=== PATIENT | female | born 1935 | race Caucasian/White ===

== ENCOUNTER 2017-05-17 14:36 | Outpatient (CLI) | payer MEDICARE, OTHER ==
--- NOTE | 2017-05-17 16:47 | XRAY Report ---
LEFT HIP AND PELVIS: CLINICAL INDICATION: Pain. Frontal view of the hips and pelvis, and frog-leg lateral view of the left hip demonstrate mild left hip osteoarthritis. Previous right hip replacement is noted, with cerclage wires in place. Vascular calcifications are present. IMPRESSION: MILD LEFT HIP OSTEOARTHRITIS. JOB #: [id number] EXT JOB #:[id number]
== END 2017-05-17 14:37 | disposition home or self-care (01) ==
LOC: DI.S 14:36
PROVIDERS: ATTEND Nurse Practitioner Family
DX: M25.552 Pain in left hip (principal); M16.12 Unilateral primary osteoarthritis, left hip; Z91.81 History of falling

== ENCOUNTER 2017-08-16 11:05 | Outpatient (CLI) | payer MEDICARE, OTHER ==
[2017-08-16 18:07] LABS: BASOPHILS # (AUTO) 0.1 10^3/uL (0.0-0.1); BASOPHILS % (AUTO) 1.4 %; EOSINOPHILS # (AUTO) 0.5 10^3/uL (0.0-0.7); EOSINOPHILS % (AUTO) 6.2 %; HCT - HEMATOCRIT 43.2 % (37.0-47.0); HGB - HEMOGLOBIN 13.9 g/dL (12.0-16.0); LYMPHOCYTES # (AUTO) 2.2 10^3/uL (1.5-3.5); LYMPHOCYTES % (AUTO) 27.3 %; MEAN CORPUSCULAR HEMOGLOBIN 32.3 pg (27.0-31.0); MEAN CORPUSCULAR HGB CONC 32.1 g/dL (32.0-36.0); MEAN CORPUSCULAR VOLUME 100.6 fL (81.0-99.0); MEAN PLATELET VOLUME 10.2 fL (7.9-10.8); MONOCYTES # (AUTO) 1.1 10^3/uL (0.0-1.0); MONOCYTES % (AUTO) 14.1 %; NEUTROPHILS # (AUTO) 4.1 10^3/uL (1.5-6.6); NUCLEATED RED BLOOD CELLS AUTO 0.1 /100WBC; RED BLOOD COUNT 4.29 10^6/uL (4.20-5.40); RED CELL DISTRIBUTION WIDTH 18.3 % (12.0-15.0); UNCORRECTED WHITE BLOOD COUNT 8.1 x10^3/uL; WHITE BLOOD COUNT 8.1 x10^3/uL (4.8-10.8)
[2017-08-16 18:42] LABS: PLATELET ESTIMATE, MANUAL NORMAL (130-450,000) (NORMAL); PLATELET MORPHOLOGY NORMAL APPEARANCE (NORMAL)
[2017-08-16 18:44] LABS: THYROID STIMULATING HORMONE < 0.08 uIU/mL (0.34-5.60)
[2017-08-16 19:15] LABS: ALBUMIN/GLOBULIN RATIO 1.3 (1.0-2.2); BILIRUBIN,TOTAL 0.7 mg/dL (0.2-1.0); BUN - BLOOD UREA NITROGEN 19 mg/dL (6-20); CALCIUM 9.5 mg/dL (8.5-10.3); CARBON DIOXIDE - CO2 27 mmol/L (21-32); CHLORIDE 109 mmol/L (101-111); CHOL/HDL RATIO 2.8 (<4.4); CHOLESTEROL 194 mg/dL; CREATININE 0.8 mg/dL (0.4-1.0); GFR - MDRD 69 (>89); GLUCOSE 71 mg/dL (70-100); HDL CHOLESTEROL 69 mg/dL; LDL/HDL RATIO 1.6 (<4.4); POTASSIUM 3.9 mmol/L (3.5-5.0); SODIUM 142 mmol/L (135-145); TOTAL PROTEIN 6.3 g/dL (6.7-8.2); TRIGLYCERIDES 91 mg/dL; VLDL CHOLESTEROL 18 mg/dL
== END 2017-08-16 11:06 | disposition home or self-care (01) ==
LOC: LAB.F 11:05
PROVIDERS: ATTEND Family Medicine
DX: E03.9 Hypothyroidism, unspecified (principal); D64.9 Anemia, unspecified; E55.9 Vitamin D deficiency, unspecified; E21.3 Hyperparathyroidism, unspecified; I73.00 Raynaud's syndrome without gangrene; G62.9 Polyneuropathy, unspecified
CPT/HCPCS: 36415; 80053; 80061; 82306; 83036; 84439; 84443; 85025

== ENCOUNTER 2017-09-07 15:01 | Outpatient (CLI) | payer MEDICARE, OTHER ==
--- NOTE | 2017-09-08 13:17 | XRAY Report ---
DATE OF SERVICE: 09/07/2017 EXAM: TWO VIEW LEFT HAND: 09/07/2017 CLINICAL INDICATION: Chronic pain. FINDINGS: Frontal and lateral views of the left hand demonstrate extensive arthritic changes in the interphalangeal joints, metacarpophalangeal joints, and carpometacarpal joints, with periarticular ca lcifications, suggestive of gouty arthritis. There is no evidence of acute fracture. No radiopaque foreign body i s seen in the soft tissues. IMPRESSION: EXTENSIVE ARTHRITIC CHANGES. NO EVIDENCE OF FRACTURE. TD: 09/08/2017 10:50
== END 2017-09-07 15:02 | disposition home or self-care (01) ==
LOC: DI.S 15:01
PROVIDERS: ATTEND Family Medicine
DX: M19.041 Primary osteoarthritis, right hand (principal)

== ENCOUNTER 2017-09-26 14:35 | Outpatient (CLI) | payer MEDICARE, OTHER | END 2017-09-26 14:36 | disposition home or self-care (01) | LOC: RT.S 14:35 | PROVIDERS: ATTEND Nurse Practitioner Family | DX: R06.02 Shortness of breath (principal) | CPT/HCPCS: 36415; 80048; 83880; 93005 ==

== ENCOUNTER 2017-09-26 15:26 | Outpatient (CLI) | payer MEDICARE, OTHER ==
[2017-09-26 19:35] LABS: HGB - HEMOGLOBIN 13.5 g/dL (12.0-16.0); MEAN CORPUSCULAR HEMOGLOBIN 32.2 pg (27.0-31.0); MEAN CORPUSCULAR HGB CONC 31.8 g/dL (32.0-36.0); MEAN CORPUSCULAR VOLUME 101.2 fL (81.0-99.0); MEAN PLATELET VOLUME 11.4 fL (7.9-10.8); RED BLOOD COUNT 4.2 10^6/uL (4.20-5.40); RED CELL DISTRIBUTION WIDTH 16.9 % (12.0-15.0); WHITE BLOOD COUNT 7.4 x10^3/uL (4.8-10.8)
[2017-09-26 20:06] LABS: CALCIUM 9.7 mg/dL (8.5-10.3); CREATININE 0.9 mg/dL (0.4-1.0)
== END 2017-09-26 15:27 | disposition home or self-care (01) ==
LOC: LAB.F 15:26
PROVIDERS: ATTEND Nurse Practitioner Family
DX: R06.02 Shortness of breath (principal)
CPT/HCPCS: 36415; 80048; 83880

== ENCOUNTER 2017-10-03 13:09 | Outpatient (CLI) | payer MEDICARE, OTHER | END 2017-10-03 13:10 | disposition home or self-care (01) | LOC: DI 13:09 | PROVIDERS: ATTEND Nurse Practitioner Family | DX: R06.02 Shortness of breath (principal); I51.7 Cardiomegaly | CPT/HCPCS: 93306 ==

== ENCOUNTER 2017-10-05 08:00 | Outpatient (CLI) | payer MEDICARE, OTHER | END 2017-10-05 23:59 | disposition home or self-care (01) | LOC: LAB.R 08:00 | PROVIDERS: ATTEND Nurse Practitioner Family | DX: L98.9 Disorder of the skin and subcutaneous tissue, unspecified (principal) | CPT/HCPCS: 87070; 87077; 87205 ==

== ENCOUNTER 2017-10-23 08:00 | Outpatient (CLI) | payer MEDICARE, OTHER ==
[2017-10-23 18:26] LABS: CALCIUM 9.5 mg/dL (8.5-10.3); CREATININE 1.3 mg/dL (0.4-1.0)
== END 2017-10-23 23:59 | disposition home or self-care (01) ==
LOC: LAB.S 08:00
PROVIDERS: ATTEND Family Medicine
DX: I11.0 Hypertensive heart disease with heart failure (principal); I50.9 Heart failure, unspecified
CPT/HCPCS: 36415; 80048; 83880

== ENCOUNTER 2017-11-02 11:04 | Outpatient (CLI) | payer MEDICARE, OTHER ==
[2017-11-02] MEDS ORDERED: ADENOSINE 60 MG/20 ML VIAL IVP ONE (13:00)
[2017-11-02] MEDS ORDERED: REGADENOSON 0.4 MG/5 ML SYRINGE IVP ONE (17:21)
--- NOTE | 2017-11-02 18:43 | CARDIAC PROCEDURE NOTE ---
DATE OF SERVICE: 11/02/2017 Physician: KALLIE Petty PRIMARY CARE PHYSICIAN: Jose Miguel Pichardo MD PROCEDURE: Pharmacologic cardiac stress test. PROCEDURE SYMPTOMS: Congestive heart failure. CARDIAC RISK FACTORS: Age and hypertension. PREVIOUS CARDIAC PROCEDURES: Angiogram. CLINICAL HISTORY: An 81-year-old female without known coronary artery disease. INITIAL RESTING VITAL SIGNS: Blood pressure 102/52, heart rate 65. Height 63 inches, weight 124 pounds, BMI 21.8. PROCEDURE AND FINDINGS: Patient identity and date verified, consent signed, pharmaceutical check. Pharmacologic stress testing was performed with adenosine at a dose of 140 mcg/kg/min over 6 minutes. The heart rate increased to 110 beats per minute from the infusion. Blood pressure response was normal during the stress procedure. The patient developed mild infusion-related symptoms, which included a headache that subsided in a few minutes spontaneously. The resting ECG demonstrated a sinus camille with bigeminal PVCs, with the [place] sinus rhythm at 32 beats per minute, but with the bigeminal PVCs made a heart rate of 60-65. Maximal ST segment depression with stress was less than 0.5 mm and upsloping. There were two 7-beat runs of SVT at a rate of about 140, followed by sinus beats. FINAL IMPRESSIONS 1. Negative electrocardiogram for ischemia in the setting of vasodilator stress. 2. Negative stress test for angina. 3. Abnormal possible tachybrady syndrome in terms of heart rhythm, with stable vital signs. 4. Await myocardial perfusion report. 5. Dr. Warren Pichardo notified of abnormal heart rhythms and FAXed copy of ECGs demonstrating arrhythmias. TD: 11/02/2017 18:42 MTDD
[2017-11-02 19:32] VITALS: BP 102/52
--- NOTE | 2017-11-08 09:07 | Nuclear Medicine Report ---
EXAM: SINGLE-ISOTOPE PHARMACOLOGICAL STRESS TEST WITH ADENOSINE. SINGLE-ISOTOPE AND SAME-DAY REST/STRESS MY OCARDIAL PERFUSION SCANS WITH TOMOGRAPHIC IMAGING, QUANTITATIVE ANALYSIS EXAM DATE: 11/02/2017 06:38 PM. Exam made available for interpretation on 11/08/2017 CLINICAL HISTORY: Congestive heart failure. COMPARISON: None. TECHNIQUE: Following the intravenous administration of 8.7 mCi of Tc-99m sestamibi, a rest myocardial perfusion scan was done with tomography. Motion correction was applied when appropriate. After a delay of several hours on the same day, a pharmacological stress was performed with the infus ion of 48 mg of adenosine. According to protocol, 36.1 mCi of Tc-99m sestamibi was injected for stres s myocardial perfusion scan. Stress myocardial perfusion was done with tomography without attenuation correction. Motion correction was applied when appropriate. Gated tomographic images could not be obtained for wall motion analysis or calculation of ejection fr action because of irregular heartbeat. FINDINGS: No convincing fixed or reversible perfusion defects are evident. Resting wall motion analysis demonstrates no focal wall motion abnormality IMPRESSION: 1. No scintigraphic findings to indicate myocardial ischemia. Negative for infarct. 2. Normal left ventricular cavity size, no change with stress. [facility] Referring Provider Line: [phone] SITE ID: [id number]
== END 2017-11-02 11:05 | disposition home or self-care (01) ==
LOC: DI 11:04
PROVIDERS: ATTEND Family Medicine
DX: I50.9 Heart failure, unspecified (principal); I10 Essential (primary) hypertension; R94.31 Abnormal electrocardiogram [ECG] [EKG]
CPT/HCPCS: 78452; 93017; A9500; J0153

== ENCOUNTER 2017-12-19 12:20 | Outpatient (CLI) | payer MEDICARE, OTHER | END 2017-12-19 12:21 | disposition home or self-care (01) | LOC: LAB.R 12:20 | PROVIDERS: ATTEND Nurse Practitioner Family | DX: S81.811A Laceration without foreign body, right lower leg, initial encounter (principal) | CPT/HCPCS: 87070; 87205 ==

== ENCOUNTER 2017-12-31 19:41 | Emergency (ER) | payer MEDICARE, OTHER ==
--- NOTE | 2017-12-31 20:21 | ED Physician Documentation ---
History of Present Illness - Stated complaint Stated Complaint: GLF/ WEAK - Chief complaint Chief Complaint: Neuro - History obtained from History obtained from: Patient, Family - History of Present Illness Timing: Today, How many hours ago (12) Pain level max: 0 Pain level now: 0 Improved by: nothing Worsened by: nothing - Treatment prior to arrival Treatment prior to arrival: Patient slipped and fell on the ground this am. States was incontinent of urine x 2 today. No dysuria. No fevers. No injury from the fall. No vomiting. No abd pain. Also has a wound on the R santiago from a fall a few weeks ago. Is awaiting an appointment with the wound clinic. States had UTI last time this happened. Review of Systems Ten Systems: 10 systems reviewed and negative Constitutional: denies: Fever, Chills Ears: denies: Ear pain Nose: denies: Rhinorrhea / runny nose, Congestion Throat: denies: Sore throat GI: denies: Vomiting, Diarrhea Skin: denies: Rash Musculoskeletal: denies: Neck pain, Back pain Neurologic: denies: Focal weakness, Numbness, Confused, Altered mental status, Headache, LOC PD PAST MEDICAL HISTORY - Past Medical History Cardiovascular: Congestive heart failure Endocrine/Autoimmune: HyPOthyroidism, Other GI: GERD, Chronic diarrhea, Crohn's disease : None HEENT: Dental implants Psych: Depression, Anxiety Musculoskeletal: Rheumatoid arthritis, Osteoporosis, Chronic back pain, Other Derm: None - Past Surgical History General: Cholecystectomy, Appendectomy, Bowel surgery, Colonoscopy, EGD Ortho: Hip replacement, Shoulder arthroplasty /[employer]: Hysterectomy HEENT: Cataracts, Tonsil/Adenoidectomy - Present Medications Home Medications: Ambulatory Orders Medication Instructions Recorded Confirmed Gabapentin 300 mg PO QID 10/07/15 08/31/16 Levothyroxine [Synthroid] 100 mcg PO QDAC 10/07/15 08/31/16 Mesalamine [Pentasa] 250 mg PO DAILY 10/07/15 08/31/16 Omeprazole [PriLOSEC] 20 mg PO DAILY 10/07/15 08/31/16 Sertraline [Zoloft] 50 mg PO DAILY 10/07/15 08/31/16 predniSONE [Deltasone] 7.5 mg PO DAILY 10/07/15 08/31/16 Adalimumab [Humira] 40 mg PO Q14D 01/08/16 08/31/16 Cholecalciferol [Vitamin D3] 5,000 unit PO ONCE 02/17/16 08/31/16 Colchicine 0.6 mg PO DAILY 02/17/16 08/31/16 Cyanocobalamin (Vitamin B-12) 1,000 mcg PO DAILY 02/17/16 08/31/16 [Vitamin B12] Folic Acid 1 mg PO DAILY 02/17/16 08/31/16 Gluc [place]/Chondro [place] A/Vit C/Mn 1 each PO DAILY 02/17/16 08/31/16 [Glucosamine-Chondroitin Cap] Methotrexate 3 tab PO Q7D 02/17/16 08/31/16 Vit C/E/Zinc/Lutein/Zeaxanthin 1 each PO DAILY 02/17/16 08/31/16 [[employer] Gummies] Cephalexin [Keflex] 500 mg PO Q6H #20 capsule 12/31/17 - Allergies Allergies/Adverse Reactions: Allergies Allergy/AdvReac Type Severity Reaction Status Date / Time codeine Allergy Hives Verified 12/31/17 19:49 protamine Allergy Hives Verified 12/31/17 19:49 sulfamethoxazole Allergy Hives Verified 12/31/17 19:49 [From Bactrim] trimethoprim [From Bactrim] Allergy Hives Verified 12/31/17 19:49 - Social History Does the pt smoke?: No Smoking Status: Former smoker Does the pt drink ETOH?: No Does the pt have substance abuse?: No - Immunizations Immunizations are current?: Yes PD ED PE NORMAL - Vitals Vital signs reviewed: Yes - General General: Alert and oriented X 3, No acute distress - HEENT HEENT: Moist mucous membranes - Neck Neck: Supple, no meningeal sign - Cardiac Cardiac: RRR - Respiratory Respiratory: No respiratory distress, Clear bilaterally - Abdomen Abdomen: Soft, Non tender, Non distended - Back Back: No CVA TTP - Derm Derm: Warm and dry - Extremities Extremities: Other (RLE - open wound with mild erythema, no drainage) - Neuro Neuro: Alert and oriented X 3 Results - Vitals Vitals: Vital Signs - 24 hr 12/31/17 12/31/17 12/31/17 19:46 22:20 22:27 Temperature 36.5 C 36.8 C Heart Rate 115 H 67 63 Respiratory 20 18 16 Rate Blood Pressure 115/49 L 127/81 H 127/81 H O2 Saturation 99 96 95 12/31/17 22:50 Temperature 36.7 C Heart Rate 64 Respiratory 18 Rate Blood Pressure 127/73 O2 Saturation 99 Oxygen O2 Source Room air - Labs Labs: Laboratory Tests 12/31/17 12/31/17 12/31/17 20:46 21:44 21:44 WBC 16.2 H RBC 3.83 L Hgb 12.9 Hct 39.4 MCV 102.9 H MCH 33.6 H MCHC 32.7 RDW 16.2 H MPV 10.1 Neut # 12.8 H Lymph # 1.3 L [place] # 1.9 H Eos # 0.0 Baso # 0.1 Absolute Nucleated RBC 0.01 Nucleated RBC % 0.1 Manual Slide Review Indicated WBC Morphology NORMAL APPEARANCE Platelet Estimate ROAD FREIGHT CONDUCTOR Platelet Morphology PLATELET CLUMPING RBC Morph Micro Appear NORMAL APPEARANCE Sodium 139 Potassium 4.2 Chloride 105 Carbon Dioxide 27 Anion Gap 7.0 BUN 37 H Creatinine 1.1 H Estimated GFR (MDRD) 47 L Glucose 115 H Calcium 9.6 Total Bilirubin 0.9 AST 20 ALT 12 Alkaline Phosphatase 78 Total Protein 6.6 L Albumin 3.4 Globulin 3.2 Albumin/Globulin Ratio 1.1 Lipase 17 L Urine Color YELLOW Urine Clarity CLEAR Urine pH 5.0 Ur Specific [place] 1.010 Urine Protein NEGATIVE Urine Glucose (UA) NEGATIVE Urine Ketones NEGATIVE Urine Occult Blood NEGATIVE Urine Nitrite NEGATIVE Urine Bilirubin NEGATIVE Urine Urobilinogen 0.2 (NORMAL) Ur Leukocyte Esterase TRACE H Urine RBC 0-5 Urine WBC 0-3 Ur Squamous Epith Cells MOD Squamous H Urine Crystals 3-5 Uric Acid Urine Bacteria None Seen Ur Microscopic Review INDICATED Urine Culture Comments NOT INDICATED PD MEDICAL DECISION MAKING - ED course Complexity details: reviewed results, re-evaluated patient (abdomen remained soft, nt , nd), considered differential (no sepsis, no fevers), d/w patient, d/ w family ED course: Patient is an 82-year-old female who presents to the emergency department with urinary symptoms concerning for UTI. Urinalysis appears contaminated, but given her symptoms we will treat for UTI. Also appears to have mild cellulitis around the wound on the right lower extremity. Antibiotics should cover this as well. There is no drainage.Have her follow-up with the wound clinic in a few days as scheduled for this. She is ambulating well in the emergency department. She was a very difficult IV stick and blood was able to be obtained after an ultrasound-guided IV was placed in the left MARY. Unfortunately after this the IV infiltrated and it was removed. There was a small skin tear to the left upper extremity from the tourniquet, this was repaired with Steri-Strips, approximately 1 cm in length. Patient is on prednisone and the elevated white blood cell count is not uncommon for her given her steroid status. She is very well-appearing, nontoxic. If she fails to improve over the next 24 hours, family will bring her back. Her son is staying with her who is visiting from [place]. Patient and family counseled regarding signs and symptoms for which I believe and urgent re-evaluation would be necessary. Patient with good understanding of and agreement to plan and is comfortable going home at this time This document was made in part using voice recognition software. While efforts are made to proofread this document, sound alike and grammatical errors may occur. Departure - Departure Disposition: 01 Home, Self Care Clinical Impression: Dehydration UTI (urinary tract infection) Qualifiers: Urinary tract infection type: acute cystitis Hematuria presence: without hematuria Qualified Code(s): N30.00 - Acute cystitis without hematuria Leg wound, right Qualifiers: Encounter type: initial encounter Qualified Code(s): S81.801A - Unspecified open wound, right lower leg, initial encounter Condition: Good Instructions: ED Dehydration, ED UTI Cystitis Female Follow-Up: NIRU MORALES MD [Primary Care Provider] - Within 1 week Prescriptions: Cephalexin [Keflex] 500 mg PO Q6H #20 capsule Comments: Take all antibiotics until gone. Return if you worsen. You can apply antibiotic ointment twice daily to your wound until you are seen by wound care. Leave the Mepitel in place. Discharge Date/Time: 12/31/17 23:27
[2017-12-31] MEDS ORDERED: SODIUM CHLORIDE 0.9% 500 ML IV ONE (20:37)
[2017-12-31] MEDS ORDERED: SODIUM CHLORIDE 0.9% 1,000 ML IV ONE (20:37)
[2017-12-31 21:02] LABS: BILIRUBIN,URINE NEGATIVE (NEGATIVE); GLUCOSE, URINE (UA) NEGATIVE (NEGATIVE); KETONES,URINE (UA) NEGATIVE (NEGATIVE); LEUKOCYTE ESTERASE, URINE TRACE (NEGATIVE); NITRITE,URINE NEGATIVE (NEGATIVE); OCCULT BLOOD,URINE NEGATIVE (NEGATIVE); PROTEIN,URINE NEGATIVE (NEGATIVE); UROBILINOGEN,URINE 0.2 (NORMAL) E.U./dL (NORMAL)
[2017-12-31 21:03] LABS: CLARITY,URINE CLEAR (CLEAR)
[2017-12-31 21:18] LABS: BACTERIA,URINE None Seen /HPF (None Seen); RBC,URINE 0-5 /HPF (0-5); SQUAMOUS EPITHELIAL CELL,UR MOD Squamous (<= Few)
[2017-12-31 21:19] LABS: CRYSTALS,URINE 3-5 Uric Acid /LPF
[2017-12-31 22:03] LABS: BASOPHILS # (AUTO) 0.1 10^3/uL (0.0-0.1); BASOPHILS % (AUTO) 0.5 %; EOSINOPHILS % (AUTO) 0.2 %; HGB - HEMOGLOBIN 12.9 g/dL (12.0-16.0); LYMPHOCYTES # (AUTO) 1.3 10^3/uL (1.5-3.5); LYMPHOCYTES % (AUTO) 8.1 %; MEAN CORPUSCULAR HEMOGLOBIN 33.6 pg (27.0-31.0); MEAN CORPUSCULAR HGB CONC 32.7 g/dL (32.0-36.0); MEAN CORPUSCULAR VOLUME 102.9 fL (81.0-99.0); MEAN PLATELET VOLUME 10.1 fL (7.9-10.8); MONOCYTES # (AUTO) 1.9 10^3/uL (0.0-1.0); NEUTROPHILS # (AUTO) 12.8 10^3/uL (1.5-6.6); NEUTROPHILS % (AUTO) 79.2 %; RED BLOOD COUNT 3.83 10^6/uL (4.20-5.40); RED CELL DISTRIBUTION WIDTH 16.2 % (12.0-15.0); WHITE BLOOD COUNT 16.2 x10^3/uL (4.8-10.8)
[2017-12-31 22:10] LABS: ALBUMIN 3.4 g/dL (3.2-5.5); ALBUMIN/GLOBULIN RATIO 1.1 (1.0-2.2); BILIRUBIN,TOTAL 0.9 mg/dL (0.2-1.0); CALCIUM 9.6 mg/dL (8.5-10.3); CREATININE 1.1 mg/dL (0.4-1.0); TOTAL PROTEIN 6.6 g/dL (6.7-8.2)
[2017-12-31 22:21] LABS: PLATELET MORPHOLOGY PLATELET CLUMPING (NORMAL); RBC MORPHOLOGY (MULTIPLE) NORMAL APPEARANCE (NORMAL)
[2017-12-31 22:52] VITALS: BP 127/73
[2017-12-31] MEDS ORDERED: cephALEXin 250 MG CAPSULE PO STA (22:56)
[2017-12-31] MEDS ORDERED: BACITRACIN OINT TOP STA (22:58)
== END 2017-12-31 23:27 | disposition home or self-care (01) ==
LOC: ED 19:41
DX: E86.0 Dehydration (principal); N30.00 Acute cystitis without hematuria; S81.801A Unspecified open wound, right lower leg, initial encounter; W01.0XXA Fall on same level from slipping, tripping and stumbling without subsequent striking against object, initial encounter; I50.9 Heart failure, unspecified; E03.9 Hypothyroidism, unspecified; Z96.649 Presence of unspecified artificial hip joint; Z87.891 Personal history of nicotine dependence
CPT/HCPCS: 36415; 80053; 81001; 83690; 85025; 99284; A9270; 81003; 87086

== ENCOUNTER 2018-05-03 15:41 | Outpatient (CLI) | payer MEDICARE, OTHER | END 2018-05-03 15:42 | disposition home or self-care (01) | LOC: RT.S 15:41 | PROVIDERS: ATTEND Family Medicine | DX: R00.1 Bradycardia, unspecified (principal) | CPT/HCPCS: 93005 ==

== ENCOUNTER 2018-05-23 12:13 | Outpatient (CLI) | payer MEDICARE, OTHER ==
[2018-05-23 13:05] LABS: CREATININE 1.5 mg/dL (0.4-1.0); URIC ACID 4.4 mg/dL (2.6-7.2)
[2018-05-23 13:13] LABS: CALCIUM 9.1 mg/dL (8.5-10.3)
== END 2018-05-23 12:14 | disposition home or self-care (01) ==
LOC: LAB 12:13
PROVIDERS: ATTEND Nurse Practitioner Family
DX: I10 Essential (primary) hypertension (principal); M10.9 Gout, unspecified
CPT/HCPCS: 36415; 80048; 84550

== ENCOUNTER 2018-05-24 15:32 | Outpatient (CLI) | payer MEDICARE, OTHER | END 2018-05-24 15:33 | disposition critical access hospital (66) | LOC: EMS 15:32 | PROVIDERS: ATTEND Surgery | DX: R41.82 Altered mental status, unspecified (principal) | CPT/HCPCS: A0425; A0429 ==

== ENCOUNTER 2018-05-24 16:09 | Inpatient (IN) | payer MEDICARE, OTHER ==
--- NOTE | 2018-05-24 16:24 | ED Physician Documentation ---
PD HPI ALTERED MENTAL STATUS - Stated complaint Stated Complaint: AMS - History obtained from History obtained from: Patient, EMS - History of Present Illness Timing - onset: Yesterday (She is actually a good historian now. Paramedics note that she was fairly confused at home. She lives at home. She recollects falling yesterday, she was wearing slip on shoes and fell down the stairs hitting her right chest wall. That is her only injury. She took 2 Percocet last night and has taken an unknown amount today that she does not recall. The caregiver was out of the house and felt she was altered and brought in for further evaluation. She is much better now per the paramedics and she was at the house.) Review of Systems Ten Systems: 10 systems reviewed and negative Constitutional: denies: Fever, Chills Cardiac: reports: Chest pain / pressure (Right ribs from the fall). denies: Palpitations Respiratory: denies: Dyspnea, Cough GI: denies: Abdominal Pain PD PAST MEDICAL HISTORY - Past Medical History Cardiovascular: Congestive heart failure Endocrine/Autoimmune: HyPOthyroidism, Other GI: GERD, Chronic diarrhea, Crohn's disease : None HEENT: Dental implants Psych: Depression, Anxiety Musculoskeletal: Rheumatoid arthritis, Osteoporosis, Chronic back pain, Other Derm: None - Past Surgical History General: Cholecystectomy, Appendectomy, Bowel surgery, Colonoscopy, EGD Ortho: Hip replacement, Shoulder arthroplasty /[employer]: Hysterectomy HEENT: Cataracts, Tonsil/Adenoidectomy - Present Medications Home Medications: Ambulatory Orders Medication Instructions Recorded Confirmed Levothyroxine [Synthroid] 100 mcg PO QDAC 10/07/15 05/24/18 Mesalamine [Pentasa] 2,000 mg PO DAILY 10/07/15 05/24/18 Omeprazole [PriLOSEC] 20 mg PO QDAC 10/07/15 05/24/18 Sertraline [Zoloft] 50 mg PO DAILY 10/07/15 05/24/18 predniSONE [Deltasone] 7.5 mg PO DAILY 10/07/15 05/24/18 Adalimumab [Humira] 40 mg SUBQ Q14D 01/08/16 05/24/18 Cyanocobalamin (Vitamin B-12) 1,000 mcg PO DAILY 02/17/16 05/24/18 [Vitamin B12] Folic Acid 1 mg PO DAILY 02/17/16 05/24/18 Gluc [place]/Chondro [place] A/Vit C/Mn 1 each PO DAILY 02/17/16 05/24/18 [Glucosamine-Chondroitin Cap] Methotrexate 7.5 mg PO Q7D 02/17/16 05/24/18 Furosemide [Lasix] 20 mg PO QDBREAKFAST MDD 20mg 01/05/18 05/24/18 Pregabalin [Lyrica] 300 mg PO QPM 01/05/18 05/24/18 Cholecalciferol (Vitamin D3) 50,000 units PO DAILY 04/03/18 04/03/18 [Vitamin D3] Diphenoxylate HCl/Atropine 1 tab PO BID PRN 05/24/18 05/24/18 [Diphenoxylate-Atrop 2.5-0.025] Febuxostat [Uloric] 40 mg PO DAILY 05/24/18 05/24/18 Meloxicam [Meloxicam] 15 mg PO DAILY 05/24/18 05/24/18 amLODIPine [Norvasc] 5 mg PO DAILY 05/24/18 05/24/18 oxyCODONE [Roxicodone] 5 mg PO Q6H PRN 05/24/18 05/24/18 - Allergies Allergies/Adverse Reactions: Allergies Allergy/AdvReac Type Severity Reaction Status Date / Time codeine Allergy Hives Verified 05/24/18 16:27 protamine Allergy Hives Verified 05/24/18 16:27 sulfamethoxazole Allergy Hives Verified 05/24/18 16:27 [From Bactrim] trimethoprim [From Bactrim] Allergy Hives Verified 05/24/18 16:27 - Social History Does the pt smoke?: No Smoking Status: Former smoker Does the pt drink ETOH?: No Does the pt have substance abuse?: No - Immunizations Immunizations are current?: Yes PD ED PE NORMAL - Vitals Vital signs reviewed: Yes - General General: Alert and oriented X 3, No acute distress - HEENT HEENT: PERRL - Neck Neck: Supple, no meningeal sign, No bony TTP - Cardiac Cardiac: RRR, No murmur - Respiratory Respiratory: No respiratory distress, Clear bilaterally, Other (Tender right mid ribs laterally with bruising. Also bruising over the lateral right humerus but without any tenderness or limited range of motion.) - Abdomen Abdomen: Normal bowel sounds, Soft, Non tender - Back Back: No CVA TTP, No spinal TTP - Extremities Extremities: No edema, No calf tenderness / cord - Neuro Neuro: Alert and oriented X 3, Normal speech - Psych Psych: Normal mood, Normal affect Results - Vitals Vitals: Vital Signs - 24 hr 05/24/18 16:20 Temperature 36.7 C Heart Rate 89 Respiratory 12 Rate Blood Pressure 130/57 L O2 Saturation 94 Oxygen O2 Source Room air - Labs Labs: Laboratory Tests 05/24/18 05/24/18 05/24/18 16:39 16:39 16:39 WBC 11.6 H RBC 3.92 L Hgb 12.9 Hct 40.5 MCV 103.3 H MCH 33.0 H MCHC 32.0 RDW 17.3 H Plt Count 235 MPV 9.7 Neut # (Auto) 8.5 H Lymph # (Auto) 1.1 L [place] # (Auto) 1.5 H Eos # (Auto) 0.5 Baso # (Auto) 0.0 Absolute Nucleated RBC 0.01 Nucleated RBC % 0.1 Sodium 139 Potassium 4.0 Chloride 101 Carbon Dioxide 28 Anion Gap 10.0 BUN 42 H Creatinine 2.0 H Estimated GFR (MDRD) 24 L Glucose 99 Calcium 8.9 Total Bilirubin 0.6 AST 26 ALT 15 Alkaline Phosphatase 95 Total Creatine Kinase 23 Total Protein 6.5 L Albumin 3.4 Globulin 3.1 Albumin/Globulin Ratio 1.1 Lipase 31 Urine Color Urine Clarity Urine pH Ur Specific [place] Urine Protein Urine Glucose (UA) Urine Ketones Urine Occult Blood Urine Nitrite Urine Bilirubin Urine Urobilinogen Ur Leukocyte Esterase Ur Microscopic Review Urine Culture Comments Ethyl Alcohol < 5.0 05/24/18 18:07 WBC RBC Hgb Hct MCV MCH MCHC RDW Plt Count MPV Neut # (Auto) Lymph # (Auto) [place] # (Auto) Eos # (Auto) Baso # (Auto) Absolute Nucleated RBC Nucleated RBC % Sodium Potassium Chloride Carbon Dioxide Anion Gap BUN Creatinine Estimated GFR (MDRD) Glucose Calcium Total Bilirubin AST ALT Alkaline Phosphatase Total Creatine Kinase Total Protein Albumin Globulin Albumin/Globulin Ratio Lipase Urine Color YELLOW Urine Clarity CLEAR Urine pH 5.5 Ur Specific [place] 1.020 Urine Protein NEGATIVE Urine Glucose (UA) NEGATIVE Urine Ketones NEGATIVE Urine Occult Blood TRACE-INTA Urine Nitrite NEGATIVE Urine Bilirubin NEGATIVE Urine Urobilinogen 0.2 (NORMAL) Ur Leukocyte Esterase NEGATIVE Ur Microscopic Review NOT INDICATED Urine Culture Comments NOT INDICATED Ethyl Alcohol PD MEDICAL DECISION MAKING - ED course ED course: 82-year-old woman had a ground-level fall yesterday injuring her right rib cage. Initially was felt that the likely cause for her neurologic decompensation was an unintentional overdose on oxycodone. That said labs show creatinine of 2, yesterday it was 1.5. Per her she had routine labs yesterday 1 month or so after starting [facility] [place] for her gout. Yesterday her creatinine was 1.5, early this year it was 0.9. Given the rapid decompensation in her renal function I feel she will need to at least be placed in observation for monitoring, medication adjustments, IV fluids and repeat labs. I spoke with Dr. Worley for this at 5:25 PM who requested a urinalysis to make sure she does not have acute tubular necrosis or glomerulonephritis. I asked the nurse to do in and out cath. - Sepsis Event Vital Signs: Vital Signs - 24 hr 05/24/18 16:20 Temperature 36.7 C Heart Rate 89 Respiratory 12 Rate Blood Pressure 130/57 L O2 Saturation 94 Oxygen O2 Source Room air Departure - Departure Disposition: ED Place in Observation Clinical Impression: ARF (acute renal failure) Qualifiers: Acute renal failure type: unspecified Qualified Code(s): N17.9 - Acute kidney failure, unspecified Fall Qualifiers: Encounter type: initial encounter Qualified Code(s): W19.XXXA - Unspecified fall, initial encounter Contusion of right chest wall Qualifiers: Encounter type: initial encounter Qualified Code(s): S20.211A - Contusion of right front wall of thorax, initial encounter Condition: Stable
[2018-05-24 16:56] LABS: BASOPHILS % (AUTO) 0.4 %; EOSINOPHILS # (AUTO) 0.5 10^3/uL (0.0-0.7); EOSINOPHILS % (AUTO) 4.1 %; HGB - HEMOGLOBIN 12.9 g/dL (12.0-16.0); LYMPHOCYTES # (AUTO) 1.1 10^3/uL (1.5-3.5); LYMPHOCYTES % (AUTO) 9.3 %; MEAN CORPUSCULAR VOLUME 103.3 fL (81.0-99.0); MEAN PLATELET VOLUME 9.7 fL (7.9-10.8); MONOCYTES # (AUTO) 1.5 10^3/uL (0.0-1.0); MONOCYTES % (AUTO) 12.7 %; NEUTROPHILS # (AUTO) 8.5 10^3/uL (1.5-6.6); NEUTROPHILS % (AUTO) 73.5 %; PLT - PLATELET COUNT 235 10^3/uL (130-450); RED BLOOD COUNT 3.92 10^6/uL (4.20-5.40); RED CELL DISTRIBUTION WIDTH 17.3 % (12.0-15.0); WHITE BLOOD COUNT 11.6 x10^3/uL (4.8-10.8)
[2018-05-24 17:02] LABS: ALBUMIN 3.4 g/dL (3.2-5.5); ALBUMIN/GLOBULIN RATIO 1.1 (1.0-2.2); ALKALINE PHOSPHATASE 95 IU/L (42-121); ALT ALANINE AMINOTRANSFERASE 15 IU/L (10-60); AST ASPARTATE AMINOTRANSFERASE 26 IU/L (10-42); BILIRUBIN,TOTAL 0.6 mg/dL (0.2-1.0); BUN - BLOOD UREA NITROGEN 42 mg/dL (6-20); CALCIUM 8.9 mg/dL (8.5-10.3); CARBON DIOXIDE - CO2 28 mmol/L (21-32); CHLORIDE 101 mmol/L (101-111); GFR - MDRD 24 (>89); GLUCOSE 99 mg/dL (70-100); LIPASE 31 U/L (22-51); SODIUM 139 mmol/L (135-145); TOTAL PROTEIN 6.5 g/dL (6.7-8.2)
[2018-05-24] MEDS ORDERED: SODIUM CHLORIDE 0.9% 1,000 ML IV ONE ×2 (17:11)
--- NOTE | 2018-05-24 17:32 | XRAY Report ---
Reason: rib inj Procedure Date: 05/24/2018 Accession Number: [id number] / [id number] Procedure: XR - Ribs w/PA Chest RT CPT Code: FULL RESULT: EXAM: RIGHT RIB RADIOGRAPHY EXAM DATE: 05/24/2018 04:56 PM. CLINICAL HISTORY: Rib inj. COMPARISON: CHEST 2 VIEW PA/LAT 08/31/2016. TECHNIQUE: 1 view of the chest and 2 views of the ribs. FINDINGS: Bones: Multiple rib deformities are to be old, with no acute fracture identified. Satisfactory right shoulder arthroplasty. Lungs: Mild atelectasis in the bases, otherwise no focal opacities. No pneumothorax. No pleural effusions. Mediastinum: Large heart with calcified tortuous aorta. Other: None. IMPRESSION: Multiple right rib deformities all appear to be old, with no acute fracture identified. [facility]
[2018-05-24 18:17] LABS: BILIRUBIN,URINE NEGATIVE (NEGATIVE); GLUCOSE, URINE (UA) NEGATIVE (NEGATIVE); KETONES,URINE (UA) NEGATIVE (NEGATIVE); LEUKOCYTE ESTERASE, URINE NEGATIVE (NEGATIVE); NITRITE,URINE NEGATIVE (NEGATIVE); OCCULT BLOOD,URINE TRACE-INTA (NEGATIVE); PH,URINE 5.5 PH (5.0-7.5); PROTEIN,URINE NEGATIVE (NEGATIVE); UROBILINOGEN,URINE 0.2 (NORMAL) E.U./dL (NORMAL)
[2018-05-24 18:23] LABS: CLARITY,URINE CLEAR (CLEAR)
[2018-05-24] MEDS ORDERED: SODIUM CHLORIDE FLUSH 0.9% 10 ML SYRINGE IVP PRN (18:33)
[2018-05-24] MEDS ORDERED: oxyCODONE 5 MG TABLET PO PRN (18:35)
--- NOTE | 2018-05-24 22:08 | HISTORY & PHYSICAL EXAMINATION ---
Chief Complaint - Chief Complaint Chief Complaint: Lethargy History of Present Illness - Admitted From Admitted From:: Emergency department - History Obtained From Records Reviewed: Yes History obtained from: Patient Exam Limitations: Patient was drowsy and would often doze off in the mid sentence - History of Present Illness HPI Comment/Other: Patient is an 82-year-old female with a past medical history significant for Crohn's disease status post right hemicolectomy, hypothyroidism, rheumatoid arthritis, GERD, gout and depression who presents to the emergency department with a chief complaint of lethargy. According to the patient for the last 2-3 days she has been increasingly lethargic and very fatigued at home. She states that she spent most of her last 3 days in the bed and has not eaten or drank very much at all. The patient states that she did have a fall yesterday when she slipped on her shoes and fell down the stairs hitting her right chest wall. Today the patient states she was brought into the emergency department after her caregiver returned home to find her to be confused and very lethargic. The caregiver became concerned and called paramedics. The patient states that she does have chronic diarrhea but it has not been any worse recently. She does state that she feels increasingly fatigued the last few days and has not been eating or drinking well. She does admit to some right-sided chest wall pain after having had a fall yesterday. The patient denies any fevers or chills. She denies any headache. She denies any shortness of air, abdominal pain, nausea or vomiting. The patient believes that she is feeling the way she does due to her pain medication. She states that she did take Percocet last night and again today because of the pain that she was having in her chest wall. She thinks that she may have taken too much of the medication. According to the patient she had labs drawn yesterday as she was getting routine lab draw for a medication that she had started 1 month ago. She started Uloric for gout 1 month ago and was getting routine labs yesterday. The patient denies any nausea or vomiting. The patient does have chronic joint pain and is on chronic opiates at home. Patient denies any headache, blurred vision, runny nose, sore throat, nasal congestion, difficulty swallowing, palpitations, orthopnea, PND, increased lower extremity swelling, shortness of breath, cough, fevers, chills, urinary urgency, urinary frequency, dysuria, neck stiffness, hair loss, polyuria, polydipsia, skin rash, night sweats or any focal neurologic deficits. On presentation to the emergency department the patient was afebrile and vital signs were within normal limits. The patient appeared to be much more alert when she arrived in the emergency department. The patient underwent routine labs which showed a mild leukocytosis of 11.6 and an elevated creatinine of 2.0. The patient's creatinine was 0.9 in September 2017 and was up to 1.5 on routine check yesterday and now is elevated to 2.0. Patient also had an elevated BUN of 42. There was concern that the patient's altered mental status was likely secondary to her opioid use and the fact that she had decreased metabolism due to her acute renal failure. It is unclear as to what the cause of the renal failure was whether it was just that she was dehydrated over the last few days secondary to not eating or drinking much. Or if this was effect of the medication that she is on Uloric which can cause tubulointerstitial nephritis. The patient's urinalysis was clean. Patient was placed on IV fluid in the emergency department and placed in observation for further hydration and monitoring of her mentation as well as renal function. History - Past Medical History Cardiovascular: reports: None Respiratory: reports: None Endocrine/Autoimmune: reports: HyPOthyroidism, Other GI: reports: GERD, Chronic diarrhea, Crohn's disease : reports: None HEENT: reports: Dental implants Psych: reports: Depression, Anxiety Musculoskeletal: reports: Rheumatoid arthritis, Osteoporosis, Gout, Chronic back pain, Other Derm: reports: None MRSA Hx?: No Other Past Medical History: Jessica, - Past Surgical History General: reports: Cholecystectomy, Appendectomy, Bowel surgery, Colonoscopy, EGD Ortho: reports: Hip replacement, Shoulder arthroplasty /[employer]: reports: Hysterectomy HEENT: reports: Cataracts, Tonsil/Adenoidectomy - Family & Social History Family History: Mother: Alive and Well, Father: Alive and Well, Sister: Alive and Well, Brother: Alive and Well Family History Comment/Other: No family history of rheumatoid arthritis or Crohn 's according to the patient Living arrangement: At home Living Situation: Alone Social History Notes: The patient lives alone in [place], [place]. She has 2 children both sons. She is originally from [place], [place] but lived in [facility] for some time. She moved would be [place] 14 years ago. She is . She is retired and previously was a psychotherapist. She was a former smoker but quit almost 30 years ago. She smoked half a pack a day for about 25 years. She denies any current alcohol use or illicit drug use. - POLST Patient has POLST: Yes POLST Status: DNR Meds/Allgy - Home Medications Home Medications: Ambulatory Orders Medication Instructions Recorded Confirmed Mesalamine [Pentasa] 2,000 mg PO DAILY 10/07/15 05/24/18 Omeprazole [PriLOSEC] 20 mg PO QDAC 10/07/15 05/24/18 Sertraline [Zoloft] 50 mg PO DAILY 10/07/15 05/24/18 predniSONE [Deltasone] 7.5 mg PO DAILY 10/07/15 05/24/18 Adalimumab [Humira] 40 mg SUBQ Q14D 01/08/16 05/24/18 Cyanocobalamin (Vitamin B-12) 1,000 mcg PO DAILY 02/17/16 05/24/18 [Vitamin B12] Folic Acid 1 mg PO DAILY 02/17/16 05/24/18 Gluc Merritt/Chondro Merritt A/Vit C/Mn 1 each PO DAILY 02/17/16 05/24/18 [Glucosamine-Chondroitin Cap] Methotrexate 7.5 mg PO Q7D 02/17/16 05/24/18 Furosemide [Lasix] 20 mg PO QDBREAKFAST MDD 20mg 01/05/18 05/24/18 Pregabalin [Lyrica] 300 mg PO QPM 01/05/18 05/24/18 Cholecalciferol (Vitamin D3) 50,000 units PO DAILY 04/03/18 04/03/18 [Vitamin D3] Diphenoxylate HCl/Atropine 1 tab PO BID PRN 05/24/18 05/24/18 [Diphenoxylate-Atrop 2.5-0.025] Febuxostat [Uloric] 40 mg PO DAILY 05/24/18 05/24/18 Levothyroxine Sodium 100 mcg PO QDAC 05/24/18 05/24/18 [Levothyroxine Sodium] Meloxicam [Meloxicam] 15 mg PO DAILY 05/24/18 05/24/18 amLODIPine [Norvasc] 5 mg PO DAILY 05/24/18 05/24/18 oxyCODONE [Roxicodone] 5 mg PO Q6H PRN 05/24/18 05/24/18 - Allergies Allergies/Adverse Reactions: Allergies Allergy/AdvReac Type Severity Reaction Status Date / Time codeine Allergy Hives Verified 05/24/18 16:27 protamine Allergy Hives Verified 05/24/18 16:27 sulfamethoxazole Allergy Hives Verified 05/24/18 16:27 [From Bactrim] trimethoprim [From Bactrim] Allergy Hives Verified 05/24/18 16:27 Review of Systems - Other Findings Other Findings: A comprehensive review of systems was performed the pertinent positives and negatives are stated above in the HPI and the remainder of the review of systems is negative. Exam - Vital Signs Reviewed Vital Signs: Yes Vital Signs: Vital Signs x48h Temp Pulse Resp BP Pulse Ox 05/24/18 19:10 37.4 C 94 16 154/67 H 92 - Physical Exam General Appearance: positive: No acute distress, Lethargic (Drowsy, dosing off during conversation) Eyes Bilateral: positive: Normal inspection, PERRL, EOMI, No lid inflammation, Conjunctivae nml, No scleral icterus ENT: positive: ENT inspection nml, Pharynx nml, Dry mucous membranes. negative : Purulent nasal drainage, Pharyngeal erythema, Oral lesions Neck: positive: Nml inspection, Thyroid nml, No JVD, Trachea midline. negative : Thyromegaly, Lymphadenopathy (R), Lymphadenopathy (L), Stiff neck, Carotid bruit, Tracheal deviation Respiratory: positive: Chest non-tender, No respiratory distress, Breath sounds nml. negative: Wheezes, Rales, Rhonchi Cardiovascular: positive: Regular rate & rhythm, No murmur, No gallop Peripheral Pulses: positive: 2+ Abdomen: positive: Non-tender, No organomegaly, Nml bowel sounds, No distention. negative: Guarding, Rebound, Hepatomegaly Back: positive: Nml inspection. negative: CVA tenderness (R), CVA tenderness (L ) Skin: positive: Color nml, No rash, Warm, Dry. negative: Diaphoresis Extremities: positive: Non-tender, Full ROM, Nml appearance, No pedal edema Neurologic/Psychiatric: positive: Oriented x3, CN's nml (2-12), Motor nml, Sensation nml, Mood/affect nml Conclusion/Plan - Problem List (1) ARF (acute renal failure) Conclusion/Plan: Patient presented with lethargy and confusion at home. It appears likely that her lethargy and confusion was secondary to opioid use in conjunction with renal failure. It is unclear at this time as to what the cause of her renal failure was. We hypothesized that potentially the patient may just be dehydrated. The patient does appear dry on exam and has not been eating or drinking well for the last 3 days due to increased fatigue and lethargy. The patient was also recently started on medication for gout called Uloric which can lead to tubulointerstitial nephritis. The patient's urinalysis was completely clear therefore this is less likely. Plan: Fluid challenge with 2-3 L of IV fluid Recheck creatinine in the morning Consider renal ultrasound if creatinine is not improving Consider nephrology consult if creatinine continues to worsen Qualifiers: Acute renal failure type: unspecified Qualified Code(s): N17.9 - Acute kidney failure, unspecified (2) Altered mental status Conclusion/Plan: Patient presented with lethargy and confusion at home. On arrival to the emergency department this had improved significantly. Once the patient received another dose of oxycodone she was more lethargic when I spoke with her. It appears that this is likely opioid induced. The patient has renal failure and likely has decreased metabolism of her opioids therefore is having greater effect from her normal home opioid dose. The patient does continue to have significant pain due to her fall yesterday and contusion of her ribs. Plan: Patient will be continued on her home oxycodone dose We will monitor her closely Patient will be given IV fluids and we will monitor her renal function If patient continues to have lethargy then we will need to cut down her opioid dose. Qualifiers: Altered mental status type: unspecified Qualified Code(s): R41.82 - Altered mental status, unspecified (3) Contusion of right chest wall Conclusion/Plan: Patient has contusion of the right chest wall after having a fall down the stairs yesterday. Patient does have pain in that area. The patient uses oxycodone at home but appeared to have had lethargy secondary to oxycodone. She did have resolution of her lethargy once she arrived in the emergency department. The patient was given further dose of oxycodone to help with the pain. The patient is now lethargic again. We will need to monitor the patient closely but it appears that she does continue to require pain medication for this right chest wall contusion. Patient did have an x-ray and does not have any rib fractures. Qualifiers: Encounter type: initial encounter Qualified Code(s): S20.211A - Contusion of right front wall of thorax, initial encounter (4) Dehydration Conclusion/Plan: Patient does appear to be dehydrated on examination. She does have dry mucous membranes and has an elevated BUN and creatinine. Patient will be given IV fluids will continue to monitor her creatinine. We will replace any electrolytes. (5) Crohns disease Conclusion/Plan: The patient does have a history of Crohn's disease and does still have chronic diarrhea. Patient currently states that she does not have any symptoms of exacerbation of Crohn's disease. We will continue the patient on her home medications for Crohn's. We will monitor patient closely. Qualifiers: Gastrointestinal tract location: small and large intestine Digestive disease complication type: unspecified complication Qualified Code(s): K50.819 - Crohn's disease of both small and large intestine with unspecified complications - Lab Results Lab results reviewed: Yes Fish Bones: 05/24/18 16:39 05/24/18 16:39 Other Lab Results: Laboratory Last Values WBC 11.6 x10^3/uL (4.8-10.8) H 05/24/18 16:39 RBC 3.92 10^6/uL (4.20-5.40) L 05/24/18 16:39 Hgb 12.9 g/dL (12.0-16.0) 05/24/18 16:39 Hct 40.5 % (37.0-47.0) 05/24/18 16:39 MCV 103.3 fL (81.0-99.0) H 05/24/18 16:39 MCH 33.0 pg (27.0-31.0) H 05/24/18 16:39 MCHC 32.0 g/dL (32.0-36.0) 05/24/18 16:39 RDW 17.3 % (12.0-15.0) H 05/24/18 16:39 Plt Count 235 10^3/uL (130-450) 05/24/18 16:39 MPV 9.7 fL (7.9-10.8) 05/24/18 16:39 Neut # (Auto) 8.5 10^3/uL (1.5-6.6) H 05/24/18 16:39 Lymph # (Auto) 1.1 10^3/uL (1.5-3.5) L 05/24/18 16:39 [place] # (Auto) 1.5 10^3/uL (0.0-1.0) H 05/24/18 16:39 Eos # (Auto) 0.5 10^3/uL (0.0-0.7) 05/24/18 16:39 Baso # (Auto) 0.0 10^3/uL (0.0-0.1) 05/24/18 16:39 Absolute Nucleated RBC 0.01 x10^3/uL 05/24/18 16:39 Nucleated RBC % 0.1 /100WBC 05/24/18 16:39 Sodium 139 mmol/L (135-145) 05/24/18 16:39 Potassium 4.0 mmol/L (3.5-5.0) 05/24/18 16:39 Chloride 101 mmol/L (101-111) 05/24/18 16:39 Carbon Dioxide 28 mmol/L (21-32) 05/24/18 16:39 Anion Gap 10.0 (6-13) 05/24/18 16:39 BUN 42 mg/dL (6-20) H 05/24/18 16:39 Creatinine 2.0 mg/dL (0.4-1.0) H 05/24/18 16:39 Estimated GFR (MDRD) 24 (>89) L 05/24/18 16:39 Glucose 99 mg/dL (70-100) 05/24/18 16:39 Calcium 8.9 mg/dL (8.5-10.3) 05/24/18 16:39 Total Bilirubin 0.6 mg/dL (0.2-1.0) 05/24/18 16:39 AST 26 IU/L (10-42) 05/24/18 16:39 ALT 15 IU/L (10-60) 05/24/18 16:39 Alkaline Phosphatase 95 IU/L (42-121) 05/24/18 16:39 Total Creatine Kinase 23 IU/L (22-269) 05/24/18 16:39 Total Protein 6.5 g/dL (6.7-8.2) L 05/24/18 16:39 Albumin 3.4 g/dL (3.2-5.5) 05/24/18 16:39 Globulin 3.1 g/dL (2.1-4.2) 05/24/18 16:39 Albumin/Globulin Ratio 1.1 (1.0-2.2) 05/24/18 16:39 Lipase 31 U/L (22-51) 05/24/18 16:39 Urine Color YELLOW 05/24/18 18:07 Urine Clarity CLEAR (CLEAR) 05/24/18 18:07 Urine pH 5.5 PH (5.0-7.5) 05/24/18 18:07 Ur Specific [place] 1.020 (1.002-1.030) 05/24/18 18:07 Urine Protein NEGATIVE mg/dL (NEGATIVE) 05/24/18 18:07 Urine Glucose (UA) NEGATIVE mg/dL (NEGATIVE) 05/24/18 18:07 Urine Ketones NEGATIVE mg/dL (NEGATIVE) 05/24/18 18:07 Urine Occult Blood TRACE-INTA (NEGATIVE) 05/24/18 18:07 Urine Nitrite NEGATIVE (NEGATIVE) 05/24/18 18:07 Urine Bilirubin NEGATIVE (NEGATIVE) 05/24/18 18:07 Urine Urobilinogen 0.2 (NORMAL) E.U./dL (NORMAL) 05/24/18 18:07 Ur Leukocyte Esterase NEGATIVE (NEGATIVE) 05/24/18 18:07 Ur Microscopic Review NOT INDICATED 05/24/18 18:07 Urine Culture Comments NOT INDICATED 05/24/18 18:07 Ethyl Alcohol < 5.0 mg/dL 05/24/18 16:39 - Diagnostic Imaging Results Diagnostic Imaging Results: positive: Final report reviewed Diagnostic Imaging Results Comments: Chest x-ray Impression: Multiple rib deformities all appear to be old. With no acute fracture identified. Core Measures - Anticipated LOS I expect patient to be DC'd or transferred within 96 hours.: Yes - DVT/VTE - Prophylaxis VTE/DVT Device ordered at admit?: Yes
[2018-05-24] MEDS: PREGABALIN 100 MG CAPSULE PO SCH (22:16)
[2018-05-25] MEDS: SODIUM CHLORIDE 0.9% 1,000 ML IV SCH ×3 (01:48→21:01)
[2018-05-25] MEDS: SODIUM CHLORIDE FLUSH 0.9% 10 ML SYRINGE IVP SCH ×3 (01:48→15:30)
[2018-05-25 05:13] LABS: CREATININE 1.2 mg/dL (0.4-1.0)
[2018-05-25] MEDS ORDERED: LEVOTHYROXINE 100 MCG TABLET PO SCH (07:00)
[2018-05-25] MEDS: LEVOTHYROXINE 100 MCG TABLET PO SCH (07:37)
[2018-05-25] MEDS ORDERED: POLYETHYLENE GLYCOL 3350 17 GM PACKET PO SCH (09:00)
[2018-05-25] MEDS: predniSONE 5 MG TABLET PO SCH (10:30)
[2018-05-25] MEDS: amLODIPine 5 MG TABLET PO SCH (10:30)
[2018-05-25] MEDS: SERTRALINE 50 MG TABLET PO SCH (10:30)
[2018-05-25] MEDS: FOLIC ACID 1 MG TABLET PO SCH (10:31)
[2018-05-25] MEDS: MESALAMINE PO SCH (12:00)
--- NOTE | 2018-05-25 17:28 | PROVIDER PROGRESS NOTE ---
Subjective - Prog Note Date Prog Note Date: 05/25/18 Prog Note Time: 17:29 - Subjective Pt reports feeling: No change Subjective: "I am so sleepy, I just cannot wake up" I have seen the patient 3 times a day. Starting this morning and into the afternoon. She is still very much lethargic. Tired. She ate her breakfast at lunchtime. And right now at dinnertime I do not know if she is going to be awake enough to eat dinner. She has not had any oxycodone since 1814 last night. Vitals have been stable. No fever. No hypoxia. As long as she stays still she says she does not have much right rib cage pain. Current Medications - Current Medications Current Medications: Active Medications Amlodipine Besylate (Norvasc) 5 mg PO DAILY [facility] Last Admin: 05/25/18 10:30 Dose: 5 mg Folic Acid () 1 mg PO DAILY [facility] Last Admin: 05/25/18 10:31 Dose: 1 mg Sodium Chloride (Normal Saline 0.9%) 1,000 mls @ 100 mls/hr IV .Q10H [facility] Last Admin: 05/25/18 12:45 Dose: 100 mls/hr Levothyroxine Sodium (Synthroid) 100 mcg PO QDAC [facility] Last Admin: 05/25/18 07:37 Dose: 100 mcg Methotrexate Sodium () 7.5 mg PO Tu@0900 [facility] Non-Formulary Medication (Mesalamine [Pentasa]) 2,000 mg PO DAILY [facility] Last Admin: 05/25/18 12:00 Dose: Not Given Prednisone (Deltasone) 7.5 mg PO DAILYWM [facility] Last Admin: 05/25/18 10:30 Dose: 7.5 mg Pregabalin (Lyrica) 300 mg PO QPM [facility] Last Admin: 05/24/18 22:16 Dose: Not Given Sertraline HCl (Zoloft) 50 mg PO DAILY [facility] Last Admin: 05/25/18 10:30 Dose: 50 mg Sodium Chloride (Normal Saline Flush 0.9%) 10 ml IVP PRN PRN PRN Reason: NEEDED PER PROVIDER ORDERS Sodium Chloride (Normal Saline Flush 0.9%) 10 ml IVP 0100,0900,1700 [facility] Last Admin: 05/25/18 15:30 Dose: Not Given Mesalamine [Pentasa] 1,250 mg PO DAILY 10/07/15 Omeprazole [PriLOSEC] 20 mg PO QDAC 10/07/15 Sertraline [Zoloft] 50 mg PO DAILY 10/07/15 predniSONE [Deltasone] 7.5 mg PO DAILY 10/07/15 Adalimumab [Humira] 40 mg SUBQ Q14D 01/08/16 Cyanocobalamin (Vitamin B-12) [Vitamin B12] 1,000 mcg PO DAILY 02/17/16 Folic Acid 1 mg PO DAILY 02/17/16 Gluc Merritt/Chondro Merritt A/Vit C/Mn [Glucosamine-Chondroitin Cap] 1 each PO DAILY 10/03 Methotrexate 7.5 mg PO Q7D 02/17/16 Furosemide [Lasix] 20 mg PO QDBREAKFAST MDD 20mg 01/05/18 Pregabalin [Lyrica] 300 mg PO QPM 01/05/18 Cholecalciferol (Vitamin D3) [Vitamin D3] 50,000 units PO DAILY 04/03/18 Diphenoxylate HCl/Atropine [Diphenoxylate-Atrop 2.5-0.025] 1 tab PO BID PRN 03/05 Febuxostat [Uloric] 40 mg PO DAILY 05/24/18 Levothyroxine Sodium [Levothyroxine Sodium] 100 mcg PO QDAC 05/24/18 Meloxicam [Meloxicam] 15 mg PO DAILY 05/24/18 amLODIPine [Norvasc] 5 mg PO DAILY 05/24/18 oxyCODONE [Roxicodone] 5 mg PO Q6H PRN 05/24/18 Objective - Vital Signs/Intake & Output Reviewed Vital Signs: Yes Vital Signs: Vital Signs x48h Temp Pulse Resp BP Pulse Ox 05/25/18 16:00 37.6 C H 89 19 139/57 H 92 05/25/18 11:09 36.5 C 93 H Intake & Output: Intake & Output 05/22/18 05/23/18 05/24/18 05/25/18 23:59 23:59 23:59 23:59 Intake Total 1000 2470 Output Total 0 350 Balance 1000 2120 - Objective General Appearance: positive: No acute distress, Lethargic, Other (Very sleepy elderly cachectic female laying quietly in her bed sleeping and who wakes with my touch on her shoulder) Eyes Bilateral: positive: PERRL, EOMI ENT: positive: Dry mucous membranes Neck: positive: No JVD. negative: Stiff neck, Carotid bruit Respiratory: positive: Other (Does not want to take a deep breath because it hurts so much in her right rib cage). negative: Wheezes, Rales, Rhonchi Cardiovascular: positive: Regular rate & rhythm, Systolic murmur. negative: Gallop/S4, Friction rub Abdomen: positive: Non-tender, No organomegaly, Nml bowel sounds, No distention Skin: positive: Warm, Dry Extremities: positive: No pedal edema Neurologic/Psychiatric: positive: Motor nml, Disoriented to time, Weakness, Other (When I ask her questions, she does eventually reply appropriately but takes a very very long time thinking about her answer. Since she does not with her eyes closed sometimes I think she is drifted off to sleep in mid answer) - Lab Results Fish Bones: 05/24/18 16:39 05/25/18 04:35 Other Labs: Lab Results x24hrs 05/25/18 Range/Units 04:35 Sodium 143 (135-145) mmol/L Potassium 4.0 (3.5-5.0) mmol/L Chloride 110 (101-111) mmol/L Carbon Dioxide 26 (21-32) mmol/L Anion Gap 7.0 (6-13) BUN 29 H (6-20) mg/dL Creatinine 1.2 H (0.4-1.0) mg/dL Estimated GFR (MDRD) 43 L (>89) Glucose 80 (70-100) mg/dL Calcium 8.0 L (8.5-10.3) mg/dL ABX Reporting Has patient been on IV antibiotics over the past 48 hours?: No Assessment/Plan - Problem List (1) ARF (acute renal failure) Impression: Patient presented with lethargy and confusion at home. It appears likely that her lethargy and confusion was secondary to opioid use in conjunction with renal failure. It is unclear at this time as to what the cause of her renal failure was. We hypothesized that potentially the patient may just be dehydrated. The patient did and does appear dry on exam and has not been eating or drinking well for the last 3 days due to increased fatigue and lethargy. Today she continues to not eat very much. She ate her breakfast at lunch. So far at dinnertime she is not waking up to eat dinner. Most of her fluid intake has been through IV fluids. The patient was also recently started on medication for gout called Uloric which can lead to tubulointerstitial nephritis. The patient's urinalysis was completely clear therefore this is less likely. Plan: Fluid challenge with 2-3 L of IV fluid Completed Rechecked creatinine And she was 1.2. So she has improved from the 2.0 from yesterday. Renal ultrasound if creatinine is not improving But since she is, no ultrasound will be done And no nephrology consult is necessary Change from observation status to inpatient status Qualifiers: Acute renal failure type: unspecified Qualified Code(s): N17.9 - Acute kidney failure, unspecified (2) Altered mental status Conclusion/Plan: Patient presented with lethargy and confusion at home. On arrival to the emergency department this had improved significantly. Once the patient received another dose of oxycodone she was more lethargic when I spoke with her. It appears that this is likely opioid induced. The patient has renal failure and likely has decreased metabolism of her opioids therefore is having greater effect from her normal home opioid dose. The patient does continue to have significant pain due to her fall 05/23 and contusion of her ribs. She continues to have sleepiness. She has slept most of the day. I evaluated her 3 times and each time she is deeply asleep and requires me to gently shake her shoulder to wake her up. Plan: Patient was continued on her home oxycodone dose But I will stop it for now to see if she can wake up. Continue to monitor her closely Patient will be given IV fluids and we will monitor her renal function Qualifiers: Altered mental status type: unspecified Qualified Code(s): R41.82 - Altered mental status, unspecified (3) Contusion of right chest wall Conclusion/Plan: Patient has contusion of the right chest wall after having a fall down the stairs 05/23. Patient does have pain in that area. The patient uses oxycodone at home but appeared to have had lethargy secondary to oxycodone. She did have resolution of her lethargy once she arrived in the emergency department. The patient was given further dose of oxycodone to help with the pain. The patient was lethargic again. We will need to monitor the patient closely but it appears that she does continue to require pain medication for this right chest wall contusion. Patient did have an x-ray and does not have any rib fractures. We will stop oxycodone. Use Toradol if necessary. Qualifiers: Encounter type: initial encounter Qualified Code(s): S20.211A - Contusion of right front wall of thorax, initial encounter (4) Dehydration Conclusion/Plan: Patient does appear to be dehydrated on examination. She did and does have dry mucous membranes and has an elevated BUN and creatinine. Patient will be given IV fluids will continue to monitor her creatinine. We will replace any electrolytes. (5) Crohns disease Conclusion/Plan: The patient does have a history of Crohn's disease and does still have chronic diarrhea. Patient currently states that she does not have any symptoms of exacerbation of Crohn's disease. We will continue the patient on her home medications for Crohn's. We will monitor patient closely. Qualifiers: Gastrointestinal tract location: small and large intestine Digestive disease complication type: unspecified complication Qualified Code(s): K50.819 - Crohn's disease of both small and large intestine with unspecified complications Qualifiers: Qualified Code(s): N17.9 - Acute kidney failure, unspecified
[2018-05-25] MEDS ORDERED: KETOROLAC 15 MG/ML VIAL IVP PRN (17:33)
[2018-05-25] MEDS: PREGABALIN 100 MG CAPSULE PO SCH (21:02)
[2018-05-26] MEDS: SODIUM CHLORIDE FLUSH 0.9% 10 ML SYRINGE IVP SCH ×2 (00:16→08:29)
[2018-05-26 05:06] LABS: CALCIUM 8.2 mg/dL (8.5-10.3); CREATININE 0.8 mg/dL (0.4-1.0)
[2018-05-26] MEDS: SODIUM CHLORIDE 0.9% 1,000 ML IV SCH (06:24)
[2018-05-26] MEDS: LEVOTHYROXINE 100 MCG TABLET PO SCH (06:24)
[2018-05-26] MEDS: SERTRALINE 50 MG TABLET PO SCH (08:27)
[2018-05-26] MEDS: amLODIPine 5 MG TABLET PO SCH (08:27)
[2018-05-26] MEDS: FOLIC ACID 1 MG TABLET PO SCH (08:27)
[2018-05-26] MEDS: MESALAMINE PO SCH (08:28)
[2018-05-26] MEDS: predniSONE 5 MG TABLET PO SCH (08:28)
[2018-05-26 10:44] VITALS: BP 129/57
--- NOTE | 2018-05-26 10:48 | Discharge Plan ---
Discharge Plan Disposition: 01 Home, Self Care Condition: Stable Prescriptions: Tamsulosin [Flomax] 0.4 mg PO DAILY #30 capsule Diet: Regular Activity Restrictions: Activity as Tolerated Additional Instructions or Follow Up instructions: You were admitted to the hospital after your friends and family find you to be a little too sleepy and confused. You do take oxycodone for pain. You had started a new medication called uloric. And you also do not like to drink too much water. We think you became dehydrated, and the oxycodone was too much for you and the uloric took away your appetite. This made you very, very sleepy. We brought you into the hospital for hydration and observation. After a day you were still not waking up. It took you 2 days to finally wake up and get up to eat your breakfast, walk in the room, and be more independent. The only other problem you had during your stay was urinary retention. I have given you a new pill to take for the next month to help you urinate more freely. You only have to take it for the next month. Please see your primary care provider, Jose Miguel Pichardo or his partners, in the next 1 week. Let them know that we have stopped your uloric and that you are on Flomax. Make sure you drink water on a daily basis and aim for 1000 cc/ day. We have given you your hospital glass to take home. That has the measurement on it and we would like you to drink 2 of those a day. No Smoking: If you smoke, Please STOP! Call for help. Follow-up with: Julián Pichardo MD [Provider Admit Priv/Credential] -
[2018-05-26] MEDS ORDERED: TAMSULOSIN 0.4 MG CAPSULE PO SCH (11:00)
--- NOTE | 2018-05-27 20:32 | DISCHARGE SUMMARY ---
Physician: Rosa Worley MD DATE OF ADMISSION: 05/25/2018 DATE OF DISCHARGE: 05/26/2018 DISCHARGE DIAGNOSES: 1. Altered mental status. 2. Nondose related adverse reaction to drugs. 3. Dehydration. 4. Acute renal failure. 5. Contusion of right chest wall. 6. Crohn's disease history. 7. Urinary retention. DISCHARGE MEDICATIONS: 1. Humira 40 mg subcutaneous 14 days. 2. Norvasc 5 mg p.o. daily. 3. Vitamin D 50,000 units daily. 4. Vitamin B12 1000 mcg daily. 5. Diphenoxylate atropine 1 tablet p.o. b.i.d. p.r.n. 6. Folic acid 1 mg p.o. daily. 7. Lasix 20 mg p.o. daily. 8. Glucosamine chondroitin capsule daily. 9. Levothyroxine 100 mcg daily. 10. Meloxicam 15 mg daily. 11. Pentasa 1250 mg p.o. daily. 12. Methotrexate 7.5 mg p.o. every 7 days. 13. Prilosec 20 mg p.o. daily. 14. Deltasone 7.5 mg daily. 15. Lyrica 300 mg daily. 16. Zoloft 50 mg daily. 17. Oxycodone reduced from 5 mg to 2.5 mg every 6 hours as needed. 18. New prescription for Flomax 0.4 mg p.o. daily. PRINCIPAL PROCEDURES: Rib with chest x-ray plain film show multiple right rib deformities that appear to be old with no acute fracture identified. No pneumothorax. No pleural effusions. Mild atelectasis at the bases. HOSPITAL COURSE: This is an 82-year-old female who has history of Crohn's disease and had a recent change in medication. According to the patient, she has been increasingly lethargic and very fatigued at home for the last 2-3 days. She spent most of her 3 days in bed and has not really eaten or drank anything. She did have a fall the day before admission where she was slipping on her shoes and fell down the stairs, hitting her right chest wall. Her caregiver brought her to the emergency room today when she was found to be confused and lethargic. The patient has chronic diarrhea and that is not any worse than usual. She has no headache, no focal neurological deficits. No chest or cardiac complaints other than the right rib cage pain. She does take Percocet for chronic pain and that dose is unchanged. She cannot remember how many Percocet she took and the antecedent 2-3 days, much less the night before. She also has a new medication in the form of Uloric. In the emergency room, she was found to be afebrile, normal vital signs. More alert than was described by the time she arrived by ambulance. She had a mild leukocytosis of 11.6 and elevated creatinine of 2. Her usual creatinine is 0.9. The day before admission, she had routine blood work done for followup of her Crohn's and her creatinine was 1.5 and today it is 2. BUN is also elevated at 42. It is felt that she is having medication reaction with a combination of not eating or drinking enough with dehydration and on top of that may have taken too much Percocet. Uloric is also new. She does not have a UTI or pneumonia. She was placed in observation and gently hydrated. Over the first day and into the next day, she remained very sleepy. On multiple visits to her room, the patient was always asleep, lying in her back, mouth open as she mouth breathes and snored. She had to be transitioned from observation status to inpatient status because we did not feel it was safe for her to return home when she was still significantly sedated. On the , the morning of discharge, she was awake, alert. Very pleasant. Had no recollection of what has been happening. She began to realize that she may have taken too much medication when she was awake, alert. Eating her breakfast completely. We talked about how much water she drinks at home and I pointed to the 500s mL jugs that we have for the patients. There is one sitting at her bedside and she has only drank about 1/4 of it. I explained to her, she needs to drink 2 of those a day and she is appalled. She says she just does not like water and never things to drink it. So I encouraged her to take this home with her, fill it up twice during the day and take the day to drink both of them. She had urinary retention that day on discharge. She had the urge to urinate, but very little would come out and bladder scan showed her to be retaining. Again, felt to be part of the side effects of her medication. Straight in and out catheter was done with good result and about 600 mL of urine out. She was placed on Flomax for that. She is to use this for only 2 weeks then stop. Contusion of her right chest wall was coke still cleaner. She cannot remember when she had the rib fractures, but she vaguely recalls falling many years ago and being told that she had chronic right rib fractures. She is discharged in stable condition. She was awake, alert, oriented to person , place and time. PHYSICAL EXAMINATION: VITAL SIGNS: Temperature is 36.5, pulse 84, blood pressure 129/57, respiratory rate 16, pulse 95, 95% on room air. She is a tall, slender, elderly female. She is quite a bit of periorbital edema around upper eyelids. No facial asymmetry. Speech is normal. NECK: Supple. LUNGS: Clear to auscultation and percussion was slow. Unlabored respiration. She has a regular rate and rhythm with a soft systolic ejection murmur. ABDOMEN: Soft, normal bowel sounds, nontender. Feet are without edema. Nursing verifies as does aide that the patient is able to sit up, stand to transfer and ambulate to the bathroom with a solid gait. She does not have ataxia. She is not wobbling. She has eating 100% of her breakfast. I have explained to her about reducing her medicine and the side effects she had. If she has another episode of confusion from medication, she may need someone to set up her medications for her. Greater than 30 minutes was spent in coordinating discharge. TD: 05/27/2018 08:40 MTDMyels
[2018-05-29] MEDS ORDERED: METHOTREXATE 2.5 MG TABLET PO SCH (09:00)
== END 2018-05-26 12:30 | disposition home or self-care (01) | DRG 948 ==
LOC: EDUNIT# → ED 16:09 → MS3 18:33 → OBSVTOIN 05-25 17:21
PROVIDERS: ADMIT Specialist; ATTEND Specialist
DX: R41.82 Altered mental status, unspecified (principal); N17.9 Acute kidney failure, unspecified; K50.819 Crohn's disease of both small and large intestine with unspecified complications; E86.0 Dehydration; T40.2X5A Adverse effect of other opioids, initial encounter; S20.211A Contusion of right front wall of thorax, initial encounter; W10.8XXA Fall (on) (from) other stairs and steps, initial encounter; Y92.009 Unspecified place in unspecified non-institutional (private) residence as the place of occurrence of the external cause; R33.9 Retention of urine, unspecified; E03.9 Hypothyroidism, unspecified; F32.9 Major depressive disorder, single episode, unspecified; M06.9 Rheumatoid arthritis, unspecified; M10.9 Gout, unspecified; M81.0 Age-related osteoporosis without current pathological fracture; G89.29 Other chronic pain; M54.9 Dorsalgia, unspecified; I73.00 Raynaud's syndrome without gangrene; K21.9 Gastro-esophageal reflux disease without esophagitis; Z66 Do not resuscitate; Z96.649 Presence of unspecified artificial hip joint; Z79.52 Long term (current) use of systemic steroids; Z79.899 Other long term (current) drug therapy; Z90.49 Acquired absence of other specified parts of digestive tract; Z87.891 Personal history of nicotine dependence
CPT/HCPCS: 36415; 80048; 80053; 80320; 81001; 81003; 82550; 83690; 85025; 87086; 96360; 96361; 96374; 99283; 99284

== ENCOUNTER 2018-07-27 15:12 | Outpatient (CLI) | payer MEDICARE, OTHER ==
[2018-07-27 17:40] LABS: BILIRUBIN,URINE NEGATIVE (NEGATIVE); GLUCOSE, URINE (UA) NEGATIVE (NEGATIVE); KETONES,URINE (UA) NEGATIVE (NEGATIVE); LEUKOCYTE ESTERASE, URINE NEGATIVE (NEGATIVE); NITRITE,URINE NEGATIVE (NEGATIVE); OCCULT BLOOD,URINE MODERATE (NEGATIVE); PH,URINE 5.5 PH (5.0-7.5); PROTEIN,URINE NEGATIVE (NEGATIVE); UROBILINOGEN,URINE 0.2 (NORMAL) E.U./dL (NORMAL)
[2018-07-27 17:54] LABS: BACTERIA,URINE None Seen /HPF (None Seen); CLARITY,URINE CLEAR (CLEAR); SQUAMOUS EPITHELIAL CELL,UR NONE SEEN (<= Few)
== END 2018-07-27 15:13 | disposition home or self-care (01) ==
LOC: LAB.R 15:12
PROVIDERS: ATTEND Nurse Practitioner Family
DX: R35.0 Frequency of micturition (principal)
CPT/HCPCS: 81001; 87086

== ENCOUNTER → 2018-07-30 | Outpatient (CLI) | payer MEDICARE, OTHER ==
[2018-07-30 18:26] LABS: BILIRUBIN,URINE NEGATIVE (NEGATIVE); GLUCOSE, URINE (UA) NEGATIVE (NEGATIVE); KETONES,URINE (UA) NEGATIVE (NEGATIVE); LEUKOCYTE ESTERASE, URINE MODERATE (NEGATIVE); NITRITE,URINE NEGATIVE (NEGATIVE); OCCULT BLOOD,URINE NEGATIVE (NEGATIVE); PH,URINE 5.5 PH (5.0-7.5); PROTEIN,URINE NEGATIVE (NEGATIVE); UROBILINOGEN,URINE 0.2 (NORMAL) E.U./dL (NORMAL)
[2018-07-30 18:58] LABS: BACTERIA,URINE None Seen /HPF (None Seen); CLARITY,URINE CLOUDY (CLEAR); CRYSTALS,URINE 3-5 Calcium Oxalate /LPF; SQUAMOUS EPITHELIAL CELL,UR FEW Squamous (<= Few)
== END ==
LOC: LAB.R 14:22
PROVIDERS: ATTEND Nurse Practitioner Family
DX: R35.0 Frequency of micturition (principal)
CPT/HCPCS: 81001; 87086

== ENCOUNTER 2018-08-03 14:09 | Outpatient (CLI) | payer MEDICARE, OTHER ==
[2018-08-03 18:07] LABS: BASOPHILS # (AUTO) 0.1 10^3/uL (0.0-0.1); BASOPHILS % (AUTO) 0.8 %; EOSINOPHILS # (AUTO) 0.1 10^3/uL (0.0-0.7); EOSINOPHILS % (AUTO) 0.7 %; HGB - HEMOGLOBIN 11.7 g/dL (12.0-16.0); LYMPHOCYTES # (AUTO) 0.6 10^3/uL (1.5-3.5); LYMPHOCYTES % (AUTO) 8.4 %; MEAN CORPUSCULAR HEMOGLOBIN 31.9 pg (27.0-31.0); MEAN CORPUSCULAR HGB CONC 32.1 g/dL (32.0-36.0); MEAN CORPUSCULAR VOLUME 99.4 fL (81.0-99.0); MEAN PLATELET VOLUME 9.6 fL (7.9-10.8); MONOCYTES # (AUTO) 0.4 10^3/uL (0.0-1.0); MONOCYTES % (AUTO) 5.4 %; NEUTROPHILS % (AUTO) 84.7 %; PLT - PLATELET COUNT 258 10^3/uL (130-450); RED BLOOD COUNT 3.66 10^6/uL (4.20-5.40); WHITE BLOOD COUNT 7.1 x10^3/uL (4.8-10.8)
[2018-08-03 19:27] LABS: ALBUMIN 3.4 g/dL (3.2-5.5); ALBUMIN/GLOBULIN RATIO 1.2 (1.0-2.2); BILIRUBIN,TOTAL 0.6 mg/dL (0.2-1.0); CALCIUM 9.5 mg/dL (8.5-10.3); CREATININE 1.7 mg/dL (0.4-1.0); TOTAL PROTEIN 6.2 g/dL (6.7-8.2); URIC ACID 4.7 mg/dL (2.6-7.2)
== END 2018-08-03 14:10 | disposition home or self-care (01) ==
LOC: LAB.F 14:09
PROVIDERS: ATTEND Nurse Practitioner Family
DX: M10.9 Gout, unspecified (principal); I10 Essential (primary) hypertension; D64.9 Anemia, unspecified
CPT/HCPCS: 36415; 80053; 84443; 84550; 85025

== ENCOUNTER 2018-08-08 10:48 | Outpatient (CLI) | payer MEDICARE, OTHER ==
[2018-08-08 18:00] LABS: BILIRUBIN,URINE NEGATIVE (NEGATIVE); GLUCOSE, URINE (UA) NEGATIVE (NEGATIVE); KETONES,URINE (UA) NEGATIVE (NEGATIVE); LEUKOCYTE ESTERASE, URINE NEGATIVE (NEGATIVE); NITRITE,URINE NEGATIVE (NEGATIVE); OCCULT BLOOD,URINE NEGATIVE (NEGATIVE); PH,URINE 5.5 PH (5.0-7.5); PROTEIN,URINE NEGATIVE (NEGATIVE); UROBILINOGEN,URINE 0.2 (NORMAL) E.U./dL (NORMAL)
[2018-08-08 18:01] LABS: ALBUMIN 3.3 g/dL (3.2-5.5); ALBUMIN/GLOBULIN RATIO 1.2 (1.0-2.2); BILIRUBIN,TOTAL 0.9 mg/dL (0.2-1.0); CALCIUM 9.1 mg/dL (8.5-10.3); CREATININE 1.4 mg/dL (0.4-1.0); URIC ACID 4.5 mg/dL (2.6-7.2)
[2018-08-08 18:03] LABS: BASOPHILS # (AUTO) 0.1 10^3/uL (0.0-0.1); BASOPHILS % (AUTO) 0.8 %; EOSINOPHILS # (AUTO) 0.3 10^3/uL (0.0-0.7); EOSINOPHILS % (AUTO) 3.3 %; HGB - HEMOGLOBIN 10.9 g/dL (12.0-16.0); LYMPHOCYTES # (AUTO) 1.4 10^3/uL (1.5-3.5); LYMPHOCYTES % (AUTO) 15.7 %; MEAN CORPUSCULAR HEMOGLOBIN 31.2 pg (27.0-31.0); MEAN CORPUSCULAR HGB CONC 30.8 g/dL (32.0-36.0); MEAN CORPUSCULAR VOLUME 101.6 fL (81.0-99.0); MEAN PLATELET VOLUME 10.3 fL (7.9-10.8); MONOCYTES # (AUTO) 1.1 10^3/uL (0.0-1.0); MONOCYTES % (AUTO) 11.9 %; NEUTROPHILS # (AUTO) 6.2 10^3/uL (1.5-6.6); NEUTROPHILS % (AUTO) 68.3 %; PLT - PLATELET COUNT 211 10^3/uL (130-450); RED CELL DISTRIBUTION WIDTH 20.2 % (12.0-15.0)
[2018-08-08 18:14] LABS: BACTERIA,URINE None Seen /HPF (None Seen); CASTS, URINE 11-25 Hyaline Casts /LPF; CLARITY,URINE CLEAR (CLEAR); RBC,URINE 0-5 /HPF (0-5); SQUAMOUS EPITHELIAL CELL,UR RARE Squamous (<= Few)
[2018-08-08 18:19] LABS: PLATELET ESTIMATE, MANUAL NORMAL (130-450,000) (NORMAL); PLATELET MORPHOLOGY NORMAL APPEARANCE (NORMAL)
== END 2018-08-08 10:49 | disposition home or self-care (01) ==
LOC: LAB.F 10:48
PROVIDERS: ATTEND Nurse Practitioner Family
DX: N28.9 Disorder of kidney and ureter, unspecified (principal); R35.0 Frequency of micturition; M10.9 Gout, unspecified
CPT/HCPCS: 36415; 80053; 81001; 82043; 84550; 85025; 87086

== ENCOUNTER 2018-08-20 08:00 | Outpatient (CLI) | payer MEDICARE, OTHER ==
[2018-08-20 18:16] LABS: CALCIUM 9.1 mg/dL (8.5-10.3); CREATININE 1.4 mg/dL (0.4-1.0)
== END 2018-08-20 23:59 | disposition home or self-care (01) ==
LOC: LAB.S 08:00
PROVIDERS: ATTEND Nurse Practitioner Family
DX: N28.9 Disorder of kidney and ureter, unspecified (principal); I50.9 Heart failure, unspecified; R06.02 Shortness of breath
CPT/HCPCS: 36415; 80048; 83880; 93005

== ENCOUNTER 2018-08-20 14:10 | Outpatient (CLI) | payer MEDICARE, OTHER | END 2018-08-20 23:59 | LOC: RT.S 14:10 | PROVIDERS: ATTEND Nurse Practitioner Family | DX: R06.02 Shortness of breath (principal) | CPT/HCPCS: 36415; 80048; 83880; 93005 ==

== ENCOUNTER 2018-09-28 11:18 | Outpatient (CLI) | payer MEDICARE, OTHER ==
[2018-09-28 17:59] LABS: BASOPHILS # (AUTO) 0.1 10^3/uL (0.0-0.1); BASOPHILS % (AUTO) 1.5 %; EOSINOPHILS # (AUTO) 0.1 10^3/uL (0.0-0.7); EOSINOPHILS % (AUTO) 2.1 %; HGB - HEMOGLOBIN 10.6 g/dL (12.0-16.0); LYMPHOCYTES # (AUTO) 1.4 10^3/uL (1.5-3.5); LYMPHOCYTES % (AUTO) 22.2 %; MEAN CORPUSCULAR HEMOGLOBIN 28.9 pg (27.0-31.0); MEAN CORPUSCULAR HGB CONC 30.2 g/dL (32.0-36.0); MEAN CORPUSCULAR VOLUME 95.6 fL (81.0-99.0); MEAN PLATELET VOLUME 10.3 fL (7.9-10.8); MONOCYTES # (AUTO) 0.5 10^3/uL (0.0-1.0); MONOCYTES % (AUTO) 7.3 %; NEUTROPHILS # (AUTO) 4.2 10^3/uL (1.5-6.6); NEUTROPHILS % (AUTO) 66.9 %; PLT - PLATELET COUNT 265 10^3/uL (130-450); RED BLOOD COUNT 3.68 10^6/uL (4.20-5.40); RED CELL DISTRIBUTION WIDTH 21.2 % (12.0-15.0); WHITE BLOOD COUNT 6.2 x10^3/uL (4.8-10.8)
[2018-09-28 18:17] LABS: PLATELET ESTIMATE, MANUAL NORMAL (130-450,000) (NORMAL); PLATELET MORPHOLOGY NORMAL APPEARANCE (NORMAL)
[2018-09-28 18:25] LABS: % IRON SATURATION 11 % (20-50); ALBUMIN 3.4 g/dL (3.2-5.5); ALBUMIN/GLOBULIN RATIO 1.1 (1.0-2.2); ALKALINE PHOSPHATASE 69 IU/L (42-121); ALT ALANINE AMINOTRANSFERASE 15 IU/L (10-60); AST ASPARTATE AMINOTRANSFERASE 26 IU/L (10-42); BILIRUBIN,TOTAL 0.6 mg/dL (0.2-1.0); BUN - BLOOD UREA NITROGEN 41 mg/dL (6-20); CALCIUM 9.6 mg/dL (8.5-10.3); CARBON DIOXIDE - CO2 25 mmol/L (21-32); CHLORIDE 112 mmol/L (101-111); CHOL/HDL RATIO 2.5 (<4.4); CHOLESTEROL 163 mg/dL; CREATININE 1.2 mg/dL (0.4-1.0); GFR - MDRD 43 (>89); GLUCOSE 85 mg/dL (70-100); HDL CHOLESTEROL 64 mg/dL; IRON 41 ug/dL (28-170); LDL CHOLESTEROL,CALCULATED 81 mg/dL; LDL/HDL RATIO 1.3 (<4.4); SODIUM 144 mmol/L (135-145); TOTAL IRON BINDING CAPACITY 367 ug/dL (250-450); TOTAL PROTEIN 6.5 g/dL (6.7-8.2); TRANSFERRIN 262 mg/dL (192-382); VLDL CHOLESTEROL 18 mg/dL
[2018-09-28 18:26] LABS: FERRITIN 57.6 ng/mL (11.0-306.8)
== END 2018-09-28 11:19 | disposition home or self-care (01) ==
LOC: LAB.F 11:18
PROVIDERS: ATTEND Nurse Practitioner Family
DX: D64.9 Anemia, unspecified (principal); Z13.6 Encounter for screening for cardiovascular disorders
CPT/HCPCS: 36415; 80053; 80061; 82607; 82728; 83540; 83721; 84466; 85025

== ENCOUNTER 2018-10-04 13:27 | Outpatient (CLI) | payer MEDICARE, OTHER ==
--- NOTE | 2018-10-05 15:17 | XRAY Report ---
Reason: KNEE PAIN,RIGHT Procedure Date: 10/04/2018 Accession Number: [id number] / [id number] Procedure: XR - Knee 3 View RT CPT Code: FULL RESULT: EXAM: RIGHT KNEE RADIOGRAPHY EXAM DATE: 10/04/2018 02:45 PM. CLINICAL HISTORY: KNEE Pain, right. COMPARISON: None available. TECHNIQUE: 3 views. FINDINGS: Bones: The bones are osteopenic. On the lateral view, there is irregularity of the articular surface of the medial femoral condyle. On the sunrise view, there is cortical irregularity of the medial patellar facet and lateral femoral condyle. Patchy sclerotic medullary densities in the distal femur. Joints: Moderate joint effusion. Mild to moderate tricompartmental joint space narrowing. Soft Tissues: Calcified plaque throughout the visualized femoral, popliteal, and right lower leg arteries. IMPRESSION: Moderate knee joint effusion. There appear to be acute fractures of the medial patellar facet and articular surface of the medial femoral condyle. Possible additional fracture of the lateral femoral condyle. Osteopenia. Patchy sclerotic medullary densities in the distal femur likely representing bone infarct versus enchondroma. MRI could help further distinguish. RADIA
== END 2018-10-04 13:28 | disposition home or self-care (01) ==
LOC: DI 13:27
PROVIDERS: ATTEND Nurse Practitioner Family
DX: M25.461 Effusion, right knee (principal); M85.861 Other specified disorders of bone density and structure, right lower leg

== ENCOUNTER 2018-10-24 18:31 | Outpatient (CLI) | payer MEDICARE, OTHER | END 2018-10-24 18:32 | disposition critical access hospital (66) | LOC: EMS 18:31 | PROVIDERS: ATTEND Surgery | DX: R41.82 Altered mental status, unspecified (principal) | CPT/HCPCS: A0425; A0427 ==

== ENCOUNTER 2018-10-24 19:13 | Observation (INO) | payer MEDICARE, OTHER ==
[2018-10-24 20:41] LABS: BILIRUBIN,URINE NEGATIVE (NEGATIVE); GLUCOSE, URINE (UA) NEGATIVE (NEGATIVE); KETONES,URINE (UA) NEGATIVE (NEGATIVE); LEUKOCYTE ESTERASE, URINE MODERATE (NEGATIVE); NITRITE,URINE POSITIVE (NEGATIVE); OCCULT BLOOD,URINE NEGATIVE (NEGATIVE); PH,URINE 5.5 PH (5.0-7.5); PROTEIN,URINE NEGATIVE (NEGATIVE); UROBILINOGEN,URINE 0.2 (NORMAL) E.U./dL (NORMAL)
[2018-10-24 20:44] LABS: CLARITY,URINE CLEAR (CLEAR)
[2018-10-24 20:59] LABS: RBC,URINE None Seen /HPF (0-5); SQUAMOUS EPITHELIAL CELL,UR RARE Squamous (<= Few)
[2018-10-24 21:00] LABS: BACTERIA,URINE Moderate /HPF (None Seen)
--- NOTE | 2018-10-24 21:28 | ED Physician Documentation ---
PD HPI ALTERED MENTAL STATUS - Stated complaint Stated Complaint: LETHARGIC - Chief complaint Chief Complaint: Neuro - History obtained from History obtained from: Patient, Family (grandson), Friend (neighbor) - History of Present Illness Timing - onset: Today Quality / character: Confused Associated symptoms: Cough. No: Fever, Headache, Stiff neck, Dyspnea Contributing factors: No: Intoxicated Basline status: Alert and oriented X 3, Ambulatory, Independent Recently seen: Not recently seen - Additional information Additional information: much of HPI is from neighbor (present in ED at bedside), as patient has some difficulty articulating. Neighbor says patient has been having abdominal pain and diarrhea x several days, c/w previous crohn's disease flares. Neighbor says she was concerned that patient might not have been keeping up PO intake in proportion to the diarrhea she was having. Earlier today, patient's grandson checked on patient and found she was lethargic. He thought she might just be tired and thus he let her sleep while he walked the dog. However, patient continued to be very drowsy. Neighbor then checked on patient around 5 PM and found patient to be lethargic and confused; neighbor says patient's baseline is AAOx3 and very articulate and concise. Patient did take oxycodone earlier for abdominal pain and did have notable improvement in mental status en route to hospital subsequent to narcan, but she remains confused on my HPI/ROS. Review of Systems Constitutional: denies: Fever, Chills, Sweats Eyes: reports: Reviewed and negative Cardiac: reports: Reviewed and negative Respiratory: reports: Dyspnea, Cough, Other (grandson and neighbor report that patient had some coughing and dyspnea earlier this afternoon but not since ED arrival. patient does not recall having dyspnea nor cough) GI: reports: Abdominal Pain, Diarrhea : denies: Dysuria, Frequency Musculoskeletal: denies: Back pain Neurologic: reports: Confused, Altered mental status. denies: Generalized weakness, Focal weakness, Numbness, Headache PD PAST MEDICAL HISTORY - Past Medical History Cardiovascular: None Respiratory: None Endocrine/Autoimmune: HyPOthyroidism, Other GI: GERD, Chronic diarrhea, Crohn's disease : None HEENT: Dental implants Psych: Depression, Anxiety Musculoskeletal: Rheumatoid arthritis, Osteoporosis, Gout, Chronic back pain, Other Derm: None - Past Surgical History General: Cholecystectomy, Appendectomy, Bowel surgery, Colonoscopy, EGD Ortho: Hip replacement, Shoulder arthroplasty /TUBE [employer]ING [employer]OR: Hysterectomy HEENT: Cataracts, Tonsil/Adenoidectomy - Present Medications Home Medications: Ambulatory Orders Medication Instructions Recorded Confirmed Mesalamine [Pentasa] 1,250 mg PO DAILY 10/07/15 05/25/18 Omeprazole [PriLOSEC] 20 mg PO QDAC 10/07/15 05/24/18 Sertraline [Zoloft] 50 mg PO DAILY 10/07/15 05/24/18 predniSONE [Deltasone] 7.5 mg PO DAILY 10/07/15 05/24/18 Adalimumab [Humira] 40 mg SUBQ Q14D 01/08/16 05/25/18 Cyanocobalamin (Vitamin B-12) 1,000 mcg PO DAILY 02/17/16 05/24/18 [Vitamin B12] Folic Acid 1 mg PO DAILY 02/17/16 05/24/18 Gluc Merritt/Chondro Merritt A/Vit C/Mn 1 each PO DAILY 02/17/16 05/24/18 [Glucosamine-Chondroitin Cap] Methotrexate 7.5 mg PO Q7D 02/17/16 05/24/18 Furosemide [Lasix] 20 mg PO QDBREAKFAST MDD 20mg 01/05/18 05/24/18 Pregabalin [Lyrica] 300 mg PO QPM 01/05/18 05/24/18 Cholecalciferol (Vitamin D3) 50,000 units PO DAILY 04/03/18 05/25/18 [Vitamin D3] Diphenoxylate HCl/Atropine 1 tab PO BID PRN 05/24/18 05/24/18 [Diphenoxylate-Atrop 2.5-0.025] Levothyroxine Sodium 100 mcg PO QDAC 05/24/18 05/24/18 Meloxicam 15 mg PO DAILY 05/24/18 05/24/18 amLODIPine [Norvasc] 5 mg PO DAILY 05/24/18 05/24/18 Tamsulosin [Flomax] 0.4 mg PO DAILY #30 capsule 05/26/18 oxyCODONE [Roxicodone] 2.5 mg PO Q6H PRN #0 05/26/18 05/24/18 - Allergies Allergies/Adverse Reactions: Allergies Allergy/AdvReac Type Severity Reaction Status Date / Time codeine Allergy Hives Verified 05/24/18 16:27 protamine Allergy Hives Verified 05/24/18 16:27 sulfamethoxazole Allergy Hives Verified 05/24/18 16:27 [From Bactrim] trimethoprim [From Bactrim] Allergy Hives Verified 05/24/18 16:27 - Social History Does the pt smoke?: No Smoking Status: Never smoker Does the pt drink ETOH?: No Does the pt have substance abuse?: No - Immunizations Immunizations are current?: Yes - POLST Patient has POLST: Yes POLST Status: DNR PD ED PE NORMAL - Vitals Vital signs reviewed: Yes - General General: No acute distress, Well developed/nourished, Other (awake and alert; cannot assess orientation, as she exhibits difficulty with articulating, often cannot finish sentences due to difficulty with word-finding, and answers frequently are inappropriate to question) - HEENT HEENT: PERRL, EOMI - Neck Neck: Supple, no meningeal sign - Cardiac Cardiac: RRR - Respiratory Respiratory: No respiratory distress - Abdomen Abdomen: Normal bowel sounds, Soft, Non tender, Non distended - Back Back: No CVA TTP - Derm Derm: Normal color, Warm and dry - Extremities Extremities: No edema - Neuro Eye Opening: Spontaneous Motor: Obeys Commands Verbal: Confused GCS Score: 14 PD ED PE EXPANDED - Cardiac Cardiac: Regular Rhythm (frequent extra beats), Murmur Present (2/6 SELVIN greatest at base) - Respiratory Respiratory: Rhonchi (RLL) Results - Vitals Vitals: Vital Signs - 24 hr 10/24/18 10/24/18 10/24/18 19:16 19:50 21:22 Temperature 36.4 C L Heart Rate 81 94 92 Respiratory 14 16 18 Rate Blood Pressure 123/63 130/54 L 131/71 H O2 Saturation 98 99 97 10/24/18 23:00 Temperature Heart Rate 88 Respiratory 20 Rate Blood Pressure 113/65 O2 Saturation 98 Oxygen O2 Source Room air - Labs Labs: Laboratory Tests 10/24/18 10/24/18 10/24/18 20:32 22:22 22:22 WBC 11.8 H RBC 3.87 L Hgb 11.1 L Hct 35.6 L MCV 91.8 MCH 28.5 MCHC 31.1 L RDW 22.7 H Plt Count 244 MPV 9.1 Neut # (Auto) 10.5 H Lymph # (Auto) 0.5 L Edwards # (Auto) 0.8 Eos # (Auto) 0.0 Baso # (Auto) 0.0 Absolute Nucleated RBC 0.00 Nucleated RBC % 0.0 Manual Slide Review Indicated WBC Morphology NORMAL APPEARANCE Platelet Estimate NORMAL (130-450,000) Platelet Morphology NORMAL APPEARANCE RBC Morph Micro Appear 1+ POLYCHROMASIA Sodium 140 Potassium 4.3 Chloride 107 Carbon Dioxide 23 Anion Gap 10.0 BUN 44 H Creatinine 1.6 H Estimated GFR (MDRD) 31 L Glucose 126 H Lactic Acid Calcium 8.8 Total Bilirubin 0.7 AST 15 ALT 10 Alkaline Phosphatase 93 Total Protein 6.0 L Albumin 3.1 L Globulin 2.9 Albumin/Globulin Ratio 1.1 Lipase 30 Urine Color YELLOW Urine Clarity CLEAR Urine pH 5.5 Ur Specific [place] 1.015 Urine Protein NEGATIVE Urine Glucose (UA) NEGATIVE Urine Ketones NEGATIVE Urine Occult Blood NEGATIVE Urine Nitrite POSITIVE H Urine Bilirubin NEGATIVE Urine Urobilinogen 0.2 (NORMAL) Ur Leukocyte Esterase MODERATE H Urine RBC None Seen Urine WBC >25 H Ur Epithelial Cells FEW Transitional Ur Squamous Epith Cells RARE Squamous Urine Bacteria Moderate H Ur Microscopic Review INDICATED Urine Culture Comments INDICATED 10/24/18 22:22 WBC RBC Hgb Hct MCV MCH MCHC RDW Plt Count MPV Neut # (Auto) Lymph # (Auto) Edwards # (Auto) Eos # (Auto) Baso # (Auto) Absolute Nucleated RBC Nucleated RBC % Manual Slide Review WBC Morphology Platelet Estimate Platelet Morphology RBC Morph Micro Appear Sodium Potassium Chloride Carbon Dioxide Anion Gap BUN Creatinine Estimated GFR (MDRD) Glucose Lactic Acid 1.0 Calcium Total Bilirubin AST ALT Alkaline Phosphatase Total Protein Albumin Globulin Albumin/Globulin Ratio Lipase Urine Color Urine Clarity Urine pH Ur Specific [place] Urine Protein Urine Glucose (UA) Urine Ketones Urine Occult Blood Urine Nitrite Urine Bilirubin Urine Urobilinogen Ur Leukocyte Esterase Urine RBC Urine WBC Ur Epithelial Cells Ur Squamous Epith Cells Urine Bacteria Ur Microscopic Review Urine Culture Comments PD MEDICAL DECISION MAKING - ED course Complexity details: reviewed old records, reviewed results, re-evaluated patient, considered differential, d/w patient, d/w family Departure - Departure Disposition: ED Place in Observation Clinical Impression: UTI (urinary tract infection), Altered mental status Condition: Stable Discharge Date/Time: 10/25/18 01:00
[2018-10-24] MEDS ORDERED: cefTRIAXone 1 GM VIAL IVP STA (21:55)
[2018-10-24 22:33] LABS: BASOPHILS % (AUTO) 0.2 %; HGB - HEMOGLOBIN 11.1 g/dL (12.0-16.0); LYMPHOCYTES # (AUTO) 0.5 10^3/uL (1.5-3.5); LYMPHOCYTES % (AUTO) 4.5 %; MEAN CORPUSCULAR HEMOGLOBIN 28.5 pg (27.0-31.0); MEAN CORPUSCULAR HGB CONC 31.1 g/dL (32.0-36.0); MEAN CORPUSCULAR VOLUME 91.8 fL (81.0-99.0); MEAN PLATELET VOLUME 9.1 fL (7.9-10.8); MONOCYTES # (AUTO) 0.8 10^3/uL (0.0-1.0); MONOCYTES % (AUTO) 6.4 %; NEUTROPHILS # (AUTO) 10.5 10^3/uL (1.5-6.6); NEUTROPHILS % (AUTO) 88.9 %; PLT - PLATELET COUNT 244 10^3/uL (130-450); RED BLOOD COUNT 3.87 10^6/uL (4.20-5.40); RED CELL DISTRIBUTION WIDTH 22.7 % (12.0-15.0); WHITE BLOOD COUNT 11.8 x10^3/uL (4.8-10.8)
[2018-10-24 22:45] LABS: ALBUMIN 3.1 g/dL (3.2-5.5); ALBUMIN/GLOBULIN RATIO 1.1 (1.0-2.2); BILIRUBIN,TOTAL 0.7 mg/dL (0.2-1.0); CALCIUM 8.8 mg/dL (8.5-10.3); CREATININE 1.6 mg/dL (0.4-1.0)
[2018-10-24 23:03] LABS: PLATELET ESTIMATE, MANUAL NORMAL (130-450,000) (NORMAL); PLATELET MORPHOLOGY NORMAL APPEARANCE (NORMAL)
[2018-10-25] MEDS ORDERED: ONDANSETRON ODT 4 MG TABLET TL PRN (00:18)
[2018-10-25] MEDS ORDERED: ONDANSETRON 4 MG/2 ML VIAL IVP PRN (00:18)
[2018-10-25] MEDS ORDERED: SODIUM CHLORIDE FLUSH 0.9% 10 ML SYRINGE IVP PRN (00:18)
--- NOTE | 2018-10-25 01:09 | HISTORY & PHYSICAL EXAMINATION ---
Chief Complaint - Chief Complaint Chief Complaint: lethargy and confusion History of Present Illness - Admitted From Admitted From:: Home/ER - History Obtained From Records Reviewed: [facility] History obtained from: Dr. Larsen and patient Exam Limitations: disorientationa and word finding difficulty - History of Present Illness HPI Comment/Other: Patient is an 82-year-old female with a past medical history significant for Crohn's disease status post right hemicolectomy, hypothyroidism, rheumatoid arthritis, GERD, gout and depression who presents to the emergency department with a chief complaint of lethargy. She was admitted 05/2018 for the same thing and we treated her with IVF for dehydration, and possible side effect from new use of narcotics. She received narcan with the IVF and seemed to return to baseline: pleasant, cognitive deficits of aging, but still living alone with help from grandson, neighbors. Patient denies any headache, blurred vision, runny nose, sore throat, nasal congestion, difficulty swallowing, palpitations, orthopnea, PND, increased lower extremity swelling, shortness of breath, cough, fevers, chills, urinary urgency, urinary frequency, dysuria, neck stiffness, hair loss, polyuria, polydipsia, skin rash, night sweats or any focal neurologic deficits. But she does have Crohn's disease and may have had more abd pain and diarrhea the last few days. She says no but her neighbor says yes. On presentation to the emergency department this evening, the patient was afebrile and vital signs were within normal limits. Like her last admission, the patient appeared to be much more alert and improved once she arrived in the emergency department after receiving narcan and a liter of NS. The patient underwent routine labs which showed a mild leukocytosis of 11.8 and an elevated creatinine of 1.6. The patient's creatinine was 0.9 in September 2017 and was up to 1.5 on routine check 05/2018 and was elevated to 2.0 with her last admission for dehydration. Since then she did return to 0.8 creat once but for July and August she has been 1.2-1.4. Her urinalysis is with WBC but also w squamous cells so may be contaminated. The last time she grew out bacteria was 2015 and it was E coli. With her last admission, there was concern that the patient's altered mental status was likely secondary to her opioid use and the fact that she had decreased metabolism due to her acute renal failure. It is unclear as to what the cause of the renal failure was whether it was just that she was dehydrated over the last few days secondary to not eating or drinking much. Or if this was effect of the medication that she is on Uloric which can cause tubulointerstitial nephritis. She responded to the IVF and withholding of opiates. When she was sent home, the narcotic dose was cut in half Now that is has been transferred from the ER, she is alert. Can't tell me where she is but she knows my name and delightedly reports she is next door neighbors with one of my friends and wants to report she has heard about me and is happy to meet me. She doesn't remember meeting me in May 2018. 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 She has 2 children both sons. She is originally from [place], [place] but lived in [facility] for some time. She moved [facility] 15 years ago. She is . She is retired and previously was a psychotherapist. She was a former smoker but quit almost 30 years ago. She smoked half a pack a day for about 25 years. She denies any current alcohol use or illicit drug use. Her grandson lives near by and comes to check on her as do her neighbors. - Substance History Use: Uses substance without health or social issues: NONE Abuse: Recurrent use of substance despite neg consequences: NONE Dependence: Experiences withdrawal or developed tolerances: NONE - POLST Patient has POLST: Yes POLST Status: DNR Meds/Allgy - Home Medications Home Medications: Ambulatory Orders Medication Instructions Recorded Confirmed Mesalamine [Pentasa] 1,250 mg PO DAILY 10/07/15 05/25/18 Omeprazole [PriLOSEC] 20 mg PO QDAC 10/07/15 05/24/18 Sertraline [Zoloft] 50 mg PO DAILY 10/07/15 05/24/18 predniSONE [Deltasone] 7.5 mg PO DAILY 10/07/15 05/24/18 Adalimumab [Humira] 40 mg SUBQ Q14D 01/08/16 05/25/18 Cyanocobalamin (Vitamin B-12) 1,000 mcg PO DAILY 02/17/16 05/24/18 [Vitamin B12] Folic Acid 1 mg PO DAILY 02/17/16 05/24/18 Gluc Merritt/Chondro Merritt A/Vit C/Mn 1 each PO DAILY 02/17/16 05/24/18 [Glucosamine-Chondroitin Cap] Methotrexate 7.5 mg PO Q7D 02/17/16 05/24/18 Furosemide [Lasix] 20 mg PO QDBREAKFAST MDD 20mg 01/05/18 05/24/18 Pregabalin [Lyrica] 300 mg PO QPM 01/05/18 05/24/18 Cholecalciferol (Vitamin D3) 50,000 units PO DAILY 04/03/18 05/25/18 [Vitamin D3] Diphenoxylate HCl/Atropine 1 tab PO BID PRN 05/24/18 05/24/18 [Diphenoxylate-Atrop 2.5-0.025] Levothyroxine Sodium 100 mcg PO QDAC 05/24/18 05/24/18 Meloxicam 15 mg PO DAILY 05/24/18 05/24/18 amLODIPine [Norvasc] 5 mg PO DAILY 05/24/18 05/24/18 Tamsulosin [Flomax] 0.4 mg PO DAILY #30 capsule 05/26/18 oxyCODONE [Roxicodone] 2.5 mg PO Q6H PRN #0 05/26/18 05/24/18 - Allergies Allergies/Adverse Reactions: Allergies Allergy/AdvReac Type Severity Reaction Status Date / Time codeine Allergy Hives Verified 05/24/18 16:27 protamine Allergy Hives Verified 05/24/18 16:27 sulfamethoxazole Allergy Hives Verified 05/24/18 16:27 [From Bactrim] trimethoprim [From Bactrim] Allergy Hives Verified 05/24/18 16:27 Review of Systems - Constitutional Constitutional: reports: Fatigue. denies: Fever, Chills, Malaise, Weakness, Poor appetite - Eyes Eyes: denies: Pain, Irritation, Amaurosis, Blurred vision, Field loss, Vision loss - Ears, Nose & Throat Ears, Nose & Throat: reports: Hearing loss. denies: Ear pain, Hearing aids, Tinnitus, Vertigo, Postnasal drainage, Sore throat - Cardiovascular Cariovascular: denies: Irregular heart rate, Palpitations, Chest pain, Edema, Lightheadedness - Respiratory Respiratory: denies: Cough, Sputum production, Wheezing, Snoring, SOB at rest, SOB with exertion - Gastrointestinal Gastrointestinal: reports: Diarrhea (with her chrohns). denies: Abdominal pain, Abdominal distention, Change in bowel habits, Black stools, Bloody stools - Genitourinary Genitourinary: denies: Dysuria, Frequency, Urgency - Musculoskeletal Musculoskeletal: reports: Muscle aches, Stiffness. denies: Muscle pain, Back pain - Integumentary Integumentary: reports: Other (gets easy skin tears and she had recent ulcers of distal shins this last year taken care of by MAC). denies: Rash, Pruritis, Lesions - Neurological Neurological: reports: General weakness, Memory problems, Pre-existing deficit. denies: Focal weakness, Headache, Dizziness, Numbness - Psychiatric Psychiatric: denies: Depression, Anxiety - Endocrine Endocrine: denies: Polyuria, Polydypsia - Hematologic/Lymphatic Hematologic/Lymphatic: denies: Anemia, Bruising Prior Level of Functionality: Lives alone. Relies on neighbors and grandson to drive her. She is able to feed and dress self. Groceries bought in and counter [employer] also helps. No longer drives. Denies use of DME. Exam - Vital Signs Reviewed Vital Signs: Yes Vital Signs: Vital Signs x48h Temp Pulse Resp BP Pulse Ox 10/25/18 00:43 80 18 119/50 L 96 10/24/18 23:00 88 20 113/65 98 10/24/18 21:22 92 18 131/71 H 97 10/24/18 19:50 94 16 130/54 L 99 10/24/18 19:16 36.4 C L 81 14 123/63 98 - Physical Exam General Appearance: positive: No acute distress, Alert, Other (thin, fatigued elderly female, able to get off ER gurney, stand, walk 3 steps to [facility] bed with SBA. slow shuffle, but no ataxia. Able to turn, sit without assist.) Eyes Bilateral: positive: PERRL, EOMI ENT: positive: Dry mucous membranes Neck: positive: No JVD. negative: Stiff neck, Carotid bruit Respiratory: positive: Chest non-tender. negative: Breath sounds nml (diminshed at bases with slow unlabored respiration), Wheezes, Rales, Rhonchi Cardiovascular: positive: Regular rate & rhythm, Systolic murmur. negative: Gallop/S4, Friction rub Peripheral Pulses: positive: 1+ Abdomen: positive: Non-tender, No organomegaly, Nml bowel sounds, No distention. negative: Guarding, Rebound Skin: positive: Warm, Dry, Other (legs with scaling skin, resolved ulcers of shins on both legs.) Extremities: positive: Non-tender, Full ROM, Pedal edema (with old scars healed, 1+), Other (deformity of MCP and PIP but no acute tenosynovitis) Neurologic/Psychiatric: positive: CN's nml (2-12), Motor nml, Disoriented to place (she knows it's medical but can't say hospital or [facility] Disoriented to time (knows month and year but not day of week.), Weakness (mild and generalized). negative: Slurred/abnml speech, Depressed mood/affect Reflexes: Bicep (R): 1+, Bicep (L): 1+, Knee (R): 1+, Knee (L): 1+, Ankle (R): 0, Ankle (L): 0 Babinski Reflex: Right: Down, Left: Down Conclusion/Plan - Problem List (1) Altered mental status Conclusion/Plan: again there is a hint that it may be opiod related in that responds to a single dose of narcan. But she also received IVF and was much improved in the ER. But there is also a slight rise in creatinine, her mucosa is dry and she has blood, WBC, bacteria and laurel ase (+) in her UA. will treat as mild dehydration in face of lack of po and diarrhea with Crohns' as well as UTI. Plan: place in OBV IVF s/p 1 dose of rocephin, change to macrobid in am since she is allergic to sulfa re eval in am. Qualifiers: Altered mental status type: disorientation Qualified Code(s): R41.0 - Disorientation, unspecified (2) UTI (urinary tract infection) Conclusion/Plan: with elevated WBC but no fever, no lactic acidosis. Plan: as above. Qualifiers: Urinary tract infection type: acute cystitis Hematuria presence: with hematuria Qualified Code(s): N30.01 - Acute cystitis with hematuria (3) Dehydration Conclusion/Plan: with a slight rise in creat. overall, however, creatinine rise has stayed steady since last fall. She has not been at her baseline of 0.8 for a few months. Encourgage to make sure always drinks 750 cc/ day. Consider stopping her lasix. (4) Anemia Conclusion/Plan: Laboratory Tests 08/16/17 05/24/18 08/03/18 11:11 16:39 14:37 Hgb 13.9 12.9 11.7 L 08/08/18 09/28/18 10/24/18 11:02 11:22 22:22 Hgb 10.9 L 10.6 L 11.1 L no iron deficiency or B12 deficiency so may be due to methotrexate bone marrow suppression. No transfusion needed but she is slightly lower than her baseline h gb of 11-12. Laboratory Tests 08/03/18 09/28/18 09/28/18 14:37 11:22 11:22 Iron 41 TIBC 367 % Saturation 11 L Transferrin 262 Ferritin 57.6 Vitamin B12 1524 H TSH 0.53 Qualifiers: Anemia type: other cause Other causes of anemia: other cause, not classified Qualified Code(s): D64.89 - Other specified anemias (5) Rheumatoid arthritis Conclusion/Plan: she is controlled with her Humira, MTX and prednison. Will resume the steroids but her humira is q14 days with MTX q 7days. Will also resume her lyrica but in this elderly woman with confusion may need to reduce the dose with this as we did with opiates. Qualifiers: Rheumatoid arthritis location: multiple sites (6) HTN (hypertension) Conclusion/Plan: resume her norvasc. no lasix for now. Qualifiers: Hypertension type: essential hypertension Qualified Code(s): I10 - Essential (primary) hypertension - Lab Results Fish Bones: 10/24/18 22:22 10/24/18 22:22 Core Measures - Anticipated LOS I expect patient to be DC'd or transferred within 96 hours.: Yes - DVT/VTE - Prophylaxis VTE/DVT Device ordered at admit?: Yes
[2018-10-25] MEDS: SODIUM CHLORIDE 0.9% 1,000 ML IV SCH ×2 (01:30→10:35)
[2018-10-25] MEDS: SODIUM CHLORIDE FLUSH 0.9% 10 ML SYRINGE IVP SCH ×2 (01:33→09:34)
[2018-10-25 06:08] LABS: CALCIUM 8.7 mg/dL (8.5-10.3); CREATININE 1.3 mg/dL (0.4-1.0)
[2018-10-25 06:12] LABS: BASOPHILS % (AUTO) 0.4 %; EOSINOPHILS % (AUTO) 0.5 %; HGB - HEMOGLOBIN 9.9 g/dL (12.0-16.0); MEAN CORPUSCULAR HEMOGLOBIN 28.1 pg (27.0-31.0); MEAN CORPUSCULAR HGB CONC 29.9 g/dL (32.0-36.0); MEAN PLATELET VOLUME 9.1 fL (7.9-10.8); MONOCYTES # (AUTO) 0.8 10^3/uL (0.0-1.0); MONOCYTES % (AUTO) 9.2 %; NEUTROPHILS # (AUTO) 6.6 10^3/uL (1.5-6.6); NEUTROPHILS % (AUTO) 77.9 %; PLT - PLATELET COUNT 226 10^3/uL (130-450); RED BLOOD COUNT 3.52 10^6/uL (4.20-5.40); RED CELL DISTRIBUTION WIDTH 22.2 % (12.0-15.0); WHITE BLOOD COUNT 8.5 x10^3/uL (4.8-10.8)
[2018-10-25] MEDS ORDERED: LEVOTHYROXINE 100 MCG TABLET PO SCH (07:00)
[2018-10-25 08:15] VITALS: BP 119/61
[2018-10-25] MEDS ORDERED: NITROFURANTOIN MACRO 100 MG CAPSULE PO SCH (09:00)
[2018-10-25] MEDS ORDERED: MESALAMINE 400 MG CAPSULE PO SCH (09:00)
[2018-10-25] MEDS ORDERED: predniSONE 5 MG TABLET PO SCH (09:00)
[2018-10-25] MEDS ORDERED: POLYETHYLENE GLYCOL 3350 17 GM PACKET PO SCH (09:00)
[2018-10-25] MEDS ORDERED: amLODIPine 5 MG TABLET PO SCH (09:00)
--- NOTE | 2018-10-25 09:14 | Discharge Plan ---
Discharge Plan Disposition: Home, Self Care Condition: Fair Prescriptions: Ondansetron Odt [Zofran Odt] 4 mg TL Q6HR PRN #5 tablet PRN Reason: Nausea / Vomiting Nitrofurantoin [Macrobid] 100 mg PO BID #10 capsule Diet: Regular Activity Restrictions: No Restrictions Shower Restrictions: No Driving Restrictions: No Additional Instructions or Follow Up instructions: You were admitted to the hospital with confusion and treated for an urinary tract infection. You are being sent home on an oral antibiotic. Please complete the entire course of antibiotics as prescribed. Please follow-up with your primary care provider within 1 week. No Smoking: If you smoke, Please STOP! Call for help. Follow-up with: Mena Hernandez ARNP [Primary Care Provider] - 1 Week
--- NOTE | 2018-10-25 09:15 | DISCHARGE SUMMARY ---
Discharge Summary Admit Date: 10/25/18 Discharge Date: 10/25/18 Discharging Provider: Khadra Lipscomb [facility] Primary Care Provider: Georgie ARREGUIN Condition at Discharge: Fair Discharge Disposition: 01 Home, Self Care - DIAGNOSES Admission Diagnoses: Altered mental status Urinary Tract Infection Dehydration Anemia Rheumatoid arthritis Hypertension Discharge Diagnoses with Status of Each Condition: Altered mental status, resolved Urinary Tract Infection, improved Dehydration, resolved Anemia, stable Rheumatoid arthritis, stable Hypertension, stable - HPI History of Present Illness: As per Dr. Roas Worley's H&P dated 10/25/2018: 'Patient is an 82-year-old female with a past medical history significant for Crohn's disease status post right hemicolectomy, hypothyroidism, rheumatoid arthritis, GERD, gout and depression who presents to the emergency department with a chief complaint of lethargy. She was admitted 05/2018 for the same thing and we treated her with IVF for dehydration, and possible side effect from new use of narcotics. She received narcan with the IVF and seemed to return to baseline: pleasant, cognitive deficits of aging, but still living alone with help from grandson, neighbors. Patient denies any headache, blurred vision, runny nose, sore throat, nasal congestion, difficulty swallowing, palpitations, orthopnea, PND, increased lower extremity swelling, shortness of breath, cough, fevers, chills, urinary urgency, urinary frequency, dysuria, neck stiffness, hair loss, polyuria, polydipsia, skin rash, night sweats or any focal neurologic deficits. But she does have Crohn's disease and may have had more abd pain and diarrhea the last few days. She says no but her neighbor says yes. On presentation to the emergency department this evening, the patient was afebrile and vital signs were within normal limits. Like her last admission, the patient appeared to be much more alert and improved once she arrived in the emergency department after receiving narcan and a liter of NS. The patient underwent routine labs which showed a mild leukocytosis of 11.8 and an elevated creatinine of 1.6. The patient's creatinine was 0.9 in September 2017 and was up to 1.5 on routine check 05/2018 and was elevated to 2.0 with her last admission for dehydration. Since then she did return to 0.8 creat once but for July and August she has been 1.2-1.4. Her urinalysis is with WBC but also w squamous cells so may be contaminated. The last time she grew out bacteria was 2015 and it was E coli. With her last admission, there was concern that the patient's altered mental status was likely secondary to her opioid use and the fact that she had decreased metabolism due to her acute renal failure. It is unclear as to what the cause of the renal failure was whether it was just that she was dehydrated over the last few days secondary to not eating or drinking much. Or if this was effect of the medication that she is on Uloric which can cause tubulointerstitial nephritis. She responded to the IVF and withholding of opiates. When she was sent home, the narcotic dose was cut in half Now that is has been transferred from the ER, she is alert. Can't tell me where she is but she knows my name and delightedly reports she is next door neighbors with one of my friends and wants to report she has heard about me and is happy to meet me. She doesn't remember meeting me in May 2018.' - HOSPITAL COURSE Hospital Course: Patient was admitted for observation for treatment of urinary tract infection. She received IV fluids in the ER and a dose of rocephin. She also received a single dose of narcan. Her dehydration and mentation improved after all of the aforementioned interventions. Her urinalysis had blood, WBC, bacteria and leukocyte esterase. Her WBC were elevated, but she was without fever and no lactic acidosis. This morning, patient's altered mental status improved, and she appeared back to her baseline. Her hemoglobin was slightly less than her baseline of 11-12. She did not require a blood transfusion. Her blood pressure was controlled with norvasc. Her lasix was held. She was discharged to finish a course of macrobid for her urinary tract infection. - ALLERGIES Allergies/Adverse Reactions: Allergies Allergy/AdvReac Type Severity Reaction Status Date / Time codeine Allergy Hives Verified 05/24/18 16:27 protamine Allergy Hives Verified 05/24/18 16:27 sulfamethoxazole Allergy Hives Verified 05/24/18 16:27 [From Bactrim] trimethoprim [From Bactrim] Allergy Hives Verified 05/24/18 16:27 - MEDICATIONS Home Medications: Ambulatory Orders Medication Instructions Recorded Confirmed Mesalamine [Pentasa] 1,250 mg PO DAILY 10/07/15 10/25/18 Omeprazole [PriLOSEC] 20 mg PO QDAC 10/07/15 10/25/18 Sertraline [Zoloft] 50 mg PO DAILY 10/07/15 10/25/18 predniSONE [Deltasone] 7.5 mg PO DAILY 10/07/15 10/25/18 Adalimumab [Humira] 40 mg SUBQ Q14D 01/08/16 10/25/18 Cyanocobalamin (Vitamin B-12) 1,000 mcg PO DAILY 02/17/16 10/25/18 [Vitamin B12] Folic Acid 1 mg PO DAILY 02/17/16 10/25/18 Gluc Merritt/Chondro Merritt A/Vit C/Mn 1 each PO DAILY 02/17/16 10/25/18 [Glucosamine-Chondroitin Cap] Methotrexate 7.5 mg PO Q7D 02/17/16 10/25/18 Furosemide [Lasix] 20 mg PO QDBREAKFAST MDD 20mg 01/05/18 10/25/18 Pregabalin [Lyrica] 300 mg PO QPM 01/05/18 10/25/18 Cholecalciferol (Vitamin D3) 50,000 units PO .3TIMESWEEKLY 04/03/18 10/25/18 [Vitamin D3] Diphenoxylate HCl/Atropine 1 tab PO BID PRN 05/24/18 10/25/18 [Diphenoxylate-Atrop 2.5-0.025] Levothyroxine Sodium 100 mcg PO QDAC 05/24/18 10/25/18 Meloxicam 15 mg PO DAILY 05/24/18 10/25/18 amLODIPine [Norvasc] 5 mg PO DAILY 05/24/18 10/25/18 Nitrofurantoin [Macrobid] 100 mg PO BID #10 capsule 10/25/18 Ondansetron Odt [Zofran Odt] 4 mg TL Q6HR PRN #5 tablet 10/25/18 oxyCODONE/ACET 5/325 [Percocet 5 1 tab PO Q4H PRN MDD 4 TABS 10/25/18 10/25/18 mg/325 mg] - PHYSICAL EXAM AT DISCHARGE Peripheral Pulses: positive: 2+ Abdomen: positive: Non-tender, Nml bowel sounds, No distention Skin: positive: Warm, Dry Extremities: positive: Full ROM Neurologic/Psychiatric: positive: Oriented x3, Motor nml, Sensation nml, Mood/affect nml, Other (at time has difficulty remember specific names of people or places) - LABS Result Diagrams: 10/25/18 05:50 10/25/18 05:50 - FOLLOW UP Follow Up: Follow-up with PCP within 7-10 days - TIME SPENT Time Spent in Discharge (Minutes): 35
== END 2018-10-25 13:10 | disposition home or self-care (01) ==
LOC: EDUNIT# → EDBD → ED 19:13 → MS2 10-25 00:18
PROVIDERS: ADMIT Specialist; ATTEND Nurse Practitioner
DX: R41.82 Altered mental status, unspecified (principal); N30.01 Acute cystitis with hematuria; E86.0 Dehydration; K50.90 Crohn's disease, unspecified, without complications; D64.9 Anemia, unspecified; M06.9 Rheumatoid arthritis, unspecified; R41.3 Other amnesia; I10 Essential (primary) hypertension; E03.9 Hypothyroidism, unspecified; K21.9 Gastro-esophageal reflux disease without esophagitis; M10.9 Gout, unspecified; F32.9 Major depressive disorder, single episode, unspecified; F41.9 Anxiety disorder, unspecified; M81.0 Age-related osteoporosis without current pathological fracture; G89.29 Other chronic pain; M54.9 Dorsalgia, unspecified; M19.90 Unspecified osteoarthritis, unspecified site; Z96.649 Presence of unspecified artificial hip joint; Z87.891 Personal history of nicotine dependence; Z66 Do not resuscitate; Z79.52 Long term (current) use of systemic steroids; Z79.891 Long term (current) use of opiate analgesic; Z90.49 Acquired absence of other specified parts of digestive tract; Z79.899 Other long term (current) drug therapy
CPT/HCPCS: 36415; 80048; 80053; 81001; 83605; 83690; 85025; 87077; 87086; 87181; 96361; 96374; 99284; A9270; G0378; J7512; 81003

== ENCOUNTER 2018-11-05 11:13 | Outpatient (CLI) | payer MEDICARE, OTHER | END 2018-11-05 11:14 | disposition critical access hospital (66) | LOC: EMS 11:13 | PROVIDERS: ATTEND Surgery | DX: R10.9 Unspecified abdominal pain (principal) | CPT/HCPCS: A0425; A0427 ==

== ENCOUNTER 2018-11-05 12:22 | Emergency (ER) | payer MEDICARE, OTHER ==
[2018-11-05 12:40] VITALS: BP 134/65
[2018-11-05] MEDS ORDERED: SODIUM CHLORIDE 0.9% 1,000 ML IV ONE (13:06)
[2018-11-05 13:42] LABS: BILIRUBIN,URINE NEGATIVE (NEGATIVE); GLUCOSE, URINE (UA) NEGATIVE (NEGATIVE); KETONES,URINE (UA) NEGATIVE (NEGATIVE); LEUKOCYTE ESTERASE, URINE NEGATIVE (NEGATIVE); NITRITE,URINE NEGATIVE (NEGATIVE); OCCULT BLOOD,URINE NEGATIVE (NEGATIVE); PROTEIN,URINE NEGATIVE (NEGATIVE); UROBILINOGEN,URINE 0.2 (NORMAL) E.U./dL (NORMAL)
[2018-11-05 13:45] LABS: ALBUMIN 3.6 g/dL (3.2-5.5); ALBUMIN/GLOBULIN RATIO 1.2 (1.0-2.2); CALCIUM 9.5 mg/dL (8.5-10.3); TOTAL PROTEIN 6.6 g/dL (6.7-8.2)
[2018-11-05 13:50] LABS: BASOPHILS # (AUTO) 0.1 10^3/uL (0.0-0.1); BASOPHILS % (AUTO) 0.7 %; EOSINOPHILS # (AUTO) 0.1 10^3/uL (0.0-0.7); EOSINOPHILS % (AUTO) 0.7 %; HGB - HEMOGLOBIN 11.4 g/dL (12.0-16.0); LYMPHOCYTES # (AUTO) 0.5 10^3/uL (1.5-3.5); LYMPHOCYTES % (AUTO) 5.3 %; MEAN CORPUSCULAR HEMOGLOBIN 28.7 pg (27.0-31.0); MEAN CORPUSCULAR HGB CONC 30.9 g/dL (32.0-36.0); MEAN CORPUSCULAR VOLUME 92.8 fL (81.0-99.0); MEAN PLATELET VOLUME 8.6 fL (7.9-10.8); MONOCYTES # (AUTO) 0.7 10^3/uL (0.0-1.0); MONOCYTES % (AUTO) 7.3 %; NEUTROPHILS # (AUTO) 7.7 10^3/uL (1.5-6.6); PLT - PLATELET COUNT 206 10^3/uL (130-450); RED BLOOD COUNT 3.98 10^6/uL (4.20-5.40); RED CELL DISTRIBUTION WIDTH 22.9 % (12.0-15.0)
[2018-11-05 13:52] LABS: CLARITY,URINE CLEAR (CLEAR)
[2018-11-05 14:07] LABS: PLATELET ESTIMATE, MANUAL NORMAL (130-450,000) (NORMAL); PLATELET MORPHOLOGY NORMAL APPEARANCE (NORMAL)
--- NOTE | 2018-11-05 14:08 | ED Physician Documentation ---
PD HPI ABD PAIN - Stated complaint Stated Complaint: N/V/D - Chief complaint Chief Complaint: Abd Pain - History obtained from History obtained from: Patient, Caregiver - History of Present Illness Timing - onset: Yesterday Quality: Dull Location: Other (Left-sided.) Associated symptoms: Diarrhea (yesterday, but not today.) Recently seen: Emergency Dept (She was seen here 2 weeks ago and was diagnosed with urinary tract infection.) - Additional information Additional information: The patient is an 82-year-old female with a history of Crohn's disease, who presents with left-sided abdominal discomfort that started yesterday. She had watery diarrhea yesterday, but not today. However the abdominal pain continues today. She denies fever, dysuria or vomiting. She was seen here 2 weeks ago and diagnosed with urinary tract infection. She finished a course of Macrobid 6 days ago. Her caregiver accompanies her in the emergency department. Review of Systems Constitutional: denies: Fever Nose: denies: Congestion Throat: denies: Sore throat Cardiac: denies: Chest pain / pressure Respiratory: denies: Dyspnea, Cough GI: reports: Abdominal Pain, Nausea, Diarrhea (yesterday.). denies: Vomiting : denies: Dysuria Skin: denies: Rash Musculoskeletal: denies: Back pain Neurologic: denies: Focal weakness, Numbness, Headache PD PAST MEDICAL HISTORY - Past Medical History Past Medical History: Yes Cardiovascular: None Respiratory: None Endocrine/Autoimmune: HyPOthyroidism, Other GI: GERD, Chronic diarrhea, Crohn's disease : None HEENT: Dental implants Psych: Depression, Anxiety Musculoskeletal: Rheumatoid arthritis, Osteoporosis, Gout, Chronic back pain, Other Derm: None - Past Surgical History Past Surgical History: Yes General: Cholecystectomy, Appendectomy, Bowel surgery, Colonoscopy, EGD Ortho: Hip replacement, Shoulder arthroplasty /[employer]: Hysterectomy HEENT: Cataracts, Tonsil/Adenoidectomy - Present Medications Home Medications: Ambulatory Orders Medication Instructions Recorded Confirmed Mesalamine [Pentasa] 1,250 mg PO DAILY 10/07/15 11/05/18 Omeprazole [PriLOSEC] 20 mg PO QDAC 10/07/15 11/05/18 Sertraline [Zoloft] 50 mg PO DAILY 10/07/15 11/05/18 predniSONE [Deltasone] 7.5 mg PO DAILY 10/07/15 11/05/18 Adalimumab [Humira] 40 mg SUBQ Q14D 01/08/16 11/05/18 Cyanocobalamin (Vitamin B-12) 1,000 mcg PO DAILY 02/17/16 11/05/18 [Vitamin B12] Folic Acid 1 mg PO DAILY 02/17/16 11/05/18 Gluc [place]/Chondro [place] A/Vit C/Mn 1 each PO DAILY 02/17/16 11/05/18 [Glucosamine-Chondroitin Cap] Methotrexate 7.5 mg PO Q7D 02/17/16 11/05/18 Furosemide [Lasix] 20 mg PO QDBREAKFAST MDD 20mg 01/05/18 11/05/18 Pregabalin [Lyrica] 300 mg PO QPM 01/05/18 11/05/18 Cholecalciferol (Vitamin D3) 50,000 units PO .3TIMESWEEKLY 04/03/18 11/05/18 [Vitamin D3] Diphenoxylate HCl/Atropine 1 tab PO BID PRN 05/24/18 11/05/18 [Diphenoxylate-Atrop 2.5-0.025] Levothyroxine Sodium 100 mcg PO QDAC 05/24/18 11/05/18 Meloxicam 15 mg PO DAILY 05/24/18 11/05/18 amLODIPine [Norvasc] 5 mg PO DAILY 05/24/18 11/05/18 Nitrofurantoin [Macrobid] 100 mg PO BID #10 capsule 10/25/18 11/05/18 Ondansetron Odt [Zofran Odt] 4 mg TL Q6HR PRN #5 tablet 10/25/18 11/05/18 oxyCODONE/ACET 5/325 [Percocet 5 1 tab PO Q4H PRN MDD 4 TABS 10/25/18 11/05/18 mg/325 mg] Ondansetron Odt [Zofran] 4 mg TL Q6H PRN #10 tablet 11/05/18 - Allergies Allergies/Adverse Reactions: Allergies Allergy/AdvReac Type Severity Reaction Status Date / Time codeine Allergy Hives Verified 11/05/18 12:40 protamine Allergy Hives Verified 11/05/18 12:40 sulfamethoxazole Allergy Hives Verified 11/05/18 12:40 [From Bactrim] trimethoprim [From Bactrim] Allergy Hives Verified 11/05/18 12:40 - Social History Does the pt smoke?: No Smoking Status: Never smoker Does the pt drink ETOH?: No Does the pt have substance abuse?: No - Immunizations Immunizations are current?: Yes - POLST Patient has POLST: Yes POLST Status: DNR PD ED PE NORMAL - Vitals Vital signs reviewed: Yes (normal) - General General: Alert and oriented X 3, Well developed/nourished - HEENT HEENT: Atraumatic, Moist mucous membranes - Neck Neck: No adenopathy, No JVD - Cardiac Cardiac: RRR - Respiratory Respiratory: No respiratory distress, Clear bilaterally - Abdomen Abdomen: Normal bowel sounds, Soft, Other (Mild tenderness to palpation in the left upper quadrant, without rebound or guarding. There is no tenderness to palpation in the left lower quadrant.) - Back Back: No CVA TTP - Derm Derm: No rash - Extremities Extremities: No edema, No calf tenderness / cord - Neuro Neuro: Alert and oriented X 3, Normal speech Results - Vitals Vitals: Oxygen O2 Source Room air - Labs Labs: Laboratory Tests 11/05/18 11/05/18 11/05/18 12:20 13:10 13:10 WBC 9.0 RBC 3.98 L Hgb 11.4 L Hct 37.0 MCV 92.8 MCH 28.7 MCHC 30.9 L RDW 22.9 H Plt Count 206 MPV 8.6 Neut # (Auto) 7.7 H Lymph # (Auto) 0.5 L [place] # (Auto) 0.7 Eos # (Auto) 0.1 Baso # (Auto) 0.1 Absolute Nucleated RBC 0.00 Nucleated RBC % 0.0 Manual Slide Review Indicated Platelet Estimate NORMAL (130-450,000) Platelet Morphology NORMAL APPEARANCE RBC Morph Micro Appear 1+ POLYCHROMASIA Sodium 141 Potassium 4.0 Chloride 105 Carbon Dioxide 26 Anion Gap 10.0 BUN 20 Creatinine 1.0 Estimated GFR (MDRD) 53 L Glucose 108 H Calcium 9.5 Total Bilirubin 1.0 AST 22 ALT 10 Alkaline Phosphatase 91 Total Protein 6.6 L Albumin 3.6 Globulin 3.0 Albumin/Globulin Ratio 1.2 Lipase 28 Urine Color YELLOW Urine Clarity CLEAR Urine pH 6.0 Ur Specific [place] 1.010 Urine Protein NEGATIVE Urine Glucose (UA) NEGATIVE Urine Ketones NEGATIVE Urine Occult Blood NEGATIVE Urine Nitrite NEGATIVE Urine Bilirubin NEGATIVE Urine Urobilinogen 0.2 (NORMAL) Ur Leukocyte Esterase NEGATIVE Ur Microscopic Review NOT INDICATED Urine Culture Comments NOT INDICATED PD MEDICAL DECISION MAKING - ED course Complexity details: reviewed old records, reviewed results, re-evaluated patient, considered differential, d/w patient, d/w family ED course: The patient's presentation is significant for transient diarrhea, with mild dehydration. The etiology is not certain, but this is unlikely to be a Crohn's flare. Her CBC and chemistry panel are normal, as is her urinalysis. Her presentation does not suggest an acute bacterial gastroenteritis, or surgical abdomen. Treatment in the emergency department included administration of normal saline 1 L IV. On reexamination her abdomen is benign. She is being discharged with a prescription for Zofran. I discussed with her and her caregiver the results of her workup, symptomatic treatment and outpatient follow-up, as well as potentially worrisome signs or symptoms that should prompt reevaluation in the emergency department. Departure - Departure Disposition: 01 Home, Self Care Clinical Impression: Mild dehydration, H/O Crohn's disease Diarrhea Qualifiers: Diarrhea type: unspecified type Qualified Code(s): R19.7 - Diarrhea, unspecified Condition: Stable Instructions: ED Dehydration, ED Diarrhea Viral Follow-Up: Mena Hernandez ARNP [Primary Care Provider] - Prescriptions: Ondansetron Odt [Zofran] 4 mg TL Q6H PRN #10 tablet PRN Reason: Nausea / Vomiting Comments: Drink plenty of fluids. You can use Zofran as prescribed if needed for nausea. Follow-up with your primary physician within 1-2 weeks. Call to schedule appointment. Return to the emergency department if you develop increasing abdominal pain, persistent diarrhea, recurrent dehydration, or otherwise worsening symptoms. Discharge Date/Time: 11/05/18 14:31
== END 2018-11-05 14:31 | disposition home or self-care (01) ==
LOC: EDUNIT# → ED 12:22
DX: E86.0 Dehydration (principal); K50.90 Crohn's disease, unspecified, without complications; E03.9 Hypothyroidism, unspecified; Z96.649 Presence of unspecified artificial hip joint
CPT/HCPCS: 36415; 80053; 81001; 81003; 83690; 85025; 87086; 96360; 99283

== ENCOUNTER 2018-11-09 12:07 | Outpatient (CLI) | payer MEDICARE, OTHER ==
--- NOTE | 2018-11-09 14:22 | XRAY Report ---
Reason: SHORTNESS OF BREATH Procedure Date: 11/09/2018 Accession Number: [id number] / [id number] Procedure: XR - Chest 2 View X-Ray CPT Code: 09419 FULL RESULT: EXAM: CHEST RADIOGRAPHY EXAM DATE: 11/09/2018 12:19 PM. CLINICAL HISTORY: SHORTNESS OF BREATH. COMPARISON: [facility] W/PA CHEST RT 05/24/2018 4:34 PM. TECHNIQUE: 2 views. FINDINGS: Lungs/Pleura: No focal opacities evident. No pleural effusion. No pneumothorax. Normal volumes. Mediastinum: There is cardiomegaly. There are atheromatous calcifications of the aorta. Other: Patient has undergone right shoulder arthroplasty. IMPRESSION: 1. There is cardiomegaly. There is thoracic aortic calcification and tortuosity. 2. No acute intrathoracic plain film abnormality. [facility]
== END 2018-11-09 12:08 | disposition home or self-care (01) ==
LOC: DI 12:07
PROVIDERS: ATTEND Nurse Practitioner Family
DX: R06.02 Shortness of breath (principal); I51.7 Cardiomegaly; I70.0 Atherosclerosis of aorta
CPT/HCPCS: 71046

== ENCOUNTER 2018-11-21 13:35 | Outpatient (CLI) | payer MEDICARE, OTHER ==
[~2018-11-21 13:35] MED LIST: ALBUTEROL NEB 2.5 MG/3 ML INH ONE
== END 2018-11-21 13:36 | disposition home or self-care (01) ==
LOC: RT 13:35
PROVIDERS: ATTEND Nurse Practitioner Family
DX: R06.02 Shortness of breath (principal)
CPT/HCPCS: 94060; 94729